=== PATIENT | male | born 1930 | race Caucasian/White ===

== ENCOUNTER → 2016-08-27 | Outpatient (CLI) | payer MEDICARE, OTHER | LOC: BFHH 12:24 | PROVIDERS: ATTEND Family Medicine | DX: I50.23 Acute on chronic systolic (congestive) heart failure (principal); I48.91 Unspecified atrial fibrillation; I13.0 Hypertensive heart and chronic kidney disease with heart failure and stage 1 through stage 4 chronic kidney disease, or unspecified chronic kidney disease; N18.9 Chronic kidney disease, unspecified; D51.9 Vitamin B12 deficiency anemia, unspecified ==

== ENCOUNTER → 2017-01-06 | Outpatient (CLI) | payer OTHER | END | disposition home or self-care (01) | LOC: BFHH 11:11 | PROVIDERS: ATTEND Family Medicine | DX: I13.0 Hypertensive heart and chronic kidney disease with heart failure and stage 1 through stage 4 chronic kidney disease, or unspecified chronic kidney disease (principal); I50.23 Acute on chronic systolic (congestive) heart failure; D51.9 Vitamin B12 deficiency anemia, unspecified; I25.10 Atherosclerotic heart disease of native coronary artery without angina pectoris; Z12.5 Encounter for screening for malignant neoplasm of prostate | CPT/HCPCS: 80053; 80061; 82550; 82607; 83880; 85025; G0103 ==

== ENCOUNTER 2017-09-21 08:38 | Emergency (ER) | payer OTHER ==
[2017-09-21 08:58] VITALS: TEMP 98.1
--- NOTE | 2017-09-21 09:28 | RAD ---
EXAM DESCRIPTION: Chest,2 Views CLINICAL HISTORY: right anterior chest pain with mvt COMPARISON: Previous study December 16, 2015 TECHNIQUE: PA/lateral FINDINGS: There is no acute appearing cardiac or pulmonary abnormality. Heart size is large with normal pulmonary vascularity. Cardiac pacer defibrillator is in place with electrode lead tips in the region of the right atrium and right ventricle. Sternotomy wires are present. No pleural effusion or pneumothorax. Lungs are clear with no consolidating infiltrate. Lateral view shows intact sternum and mild spurring in the T-spine. Aorta appears calcified. 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 Since December 15, heart appears slightly larger but no other change is evident. IMPRESSION: Large heart without congestive failure. Electronically signed by: Lars Kerr MD 09/21/2017 9:26 AM CDT
[2017-09-21] MEDS: traMADol HCL 50 MG TAB PO ONE (10:34)
[2017-09-21 10:37] VITALS: O2SAT 97
--- NOTE | 2017-09-21 11:38 | ED.PDOC ---
History of Present Illness - General Chief Complaint: Chest Pain/[place] Stated Complaint: R chest wall discomfort Time Seen by Provider: 09/21/17 09:02 Source: patient Exam Limitations: no limitations - History of Present Illness Initial Comments: The patient is an 87-year-old male presenting to the emergency room secondary to pain just to the right side of his sternum that started when he was rolling over in bed this morning at around 5 AM. He waited 3-4 hours before coming into the emergency room. He has been fairly constant since then with it worse with movement and taking a deep breath. No cough or shortness of breath. No palpitations. It is no worse when he is walking around or exerting himself other than moving his thorax. His rib cage anteriorly into the right are uncomfortable to palpation. There is no obvious bruising. No crepitus. Lungs are clear. The pain is reproducible with palpation. No nausea or vomiting. He does have a pacemaker in place on the left. Timing/Duration: 4-6 hours Severity: moderate Improving Factors: immobilization Worsening Factors: movement Associated Symptoms: denies symptoms Allergies/Adverse Reactions: Allergies Codeine Allergy (Unknown, Verified 04/11/16 00:40) Home Medications: Ambulatory Orders Acitretin 25 mg PO BEDTIME 05/21/13 Aspirin [Eq Aspirin Low Dose] 81 mg PO BEDTIME 05/21/13 Atorvastatin Calcium [Lipitor] 40 mg PO BEDTIME 08/11/13 Carvedilol [Coreg] 6.25 mg PO BID 05/24/15 Furosemide 20 mg PO DAILY 05/24/15 Levothyroxine Sodium [Synthroid] 100 mcg PO DAILY 05/24/15 Lisinopril 20 mg PO DAILY 05/24/15 Potassium Chloride [K-Tab] 20 meq PO DAILY 05/24/15 Tramadol HCl 50 mg PO BID 05/24/15 Ascorbic Acid [Vitamin C] 500 mg PO BID 10/25/15 Cyclobenzaprine HCl [Flexeril] 10 mg PO BEDTIME 10/25/15 Warfarin Sodium [Coumadin] 3 mg PO BEDTIME 04/11/16 amLODIPine BESYLATE [Norvasc] 5 mg PO DAILY 04/11/16 Review of Systems - Review of Systems Constitutional: States: no symptoms reported - he patient is pleasant and in no acute distress EENTM: States: no symptoms reported Respiratory: States: no symptoms reported Cardiology: States: chest pain Gastrointestinal/Abdominal: States: no symptoms reported Genitourinary: States: no symptoms reported Musculoskeletal: States: no symptoms reported Skin: States: no symptoms reported Neurological: States: no symptoms reported Endocrine: States: no symptoms reported Hematologic/Lymphatic: States: no symptoms reported All other Systems: No Change from Baseline Past Medical History (General) - Patient Medical History Hx Seizures: No Hx Stroke: No Hx Dementia: No Hx Asthma: No Hx of COPD: No Hx Cardiac Disorders: Yes - hypertriglyceridemia Hx Congestive Heart Failure: Yes Hx Pacemaker: Yes - defib/pacemaker Hx Hypertension: Yes Hx Thyroid Disease: Yes Hx Diabetes: No Hx Gastroesophageal Reflux: No Hx Renal Disease: No Hx Cancer: No Hx of HIV: No Hx Hepatitis C: No Hx MRSA: No MRSA Source:: nasal swab Surgical History: coronary bypass surgery, other - Vaccination History Hx Tetanus, Diphtheria Vaccination: Yes Hx Influenza Vaccination: Yes - 2017 Hx Pneumococcal Vaccination: Yes - Social History Hx Tobacco Use: No Hx Chewing Tobacco Use: No Hx Alcohol Use: Yes Hx Substance Use: No Hx Substance Use Treatment: No Hx Depression: No Hx Physical Abuse: No Hx Emotional Abuse: No Hx Suspected Abuse: No - Female History Patient : No Family Medical History - Family History Sister Family History: No Known Living Status: Still Living Hx Family;Other: Alzheimers Mother Family History: No Known Living Status: Cause of : cardiac Hx Cardiac Disease: Yes Physical Exam - Physical Exam General Appearance: Alert, Anxious, No apparent distress Eye Exam: bilateral normal Ears, Nose, Throat: normal ENT inspection, normal pharynx Neck: non-tender, supple Respiratory: lungs clear, normal breath sounds, no respiratory distress, no accessory muscle use, other - nterior chest wall to the right is tender to palpation. No crepitus. No bruising. 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 The patient can take his tramadol for this pain. He does need to take big deep breaths and twist and turn to help reduce irritation at the site. He can additionally takes some Aleve if he wishes to help reduce inflammation at the site. He should expect to have some pain in that area for the next couple of weeks. ER warnings were given for any significant worsening. He should follow up with his primary care doctor in 3 or 4 days otherwise. - Results/Orders Results/Orders: 09/21/17 09:02 Telemetry .CONTINUOUS electronically pacedrate controlled rhythm 09/21/17 09:15 EKG STAT EKG shows a ventricularly paced rhythm. Two-view chest x-ray shows mild cardiomegaly and his pacer in place. No other evidence of any acute pathology. Laboratory Results - last 24 hr 09/21/17 09/21/17 09/21/17 08:55 08:55 08:55 WBC 7.0 RBC 4.05 L Hgb 14.2 Hct 42.2 MCV 104.1 H MCH 35.0 H MCHC 33.7 RDW 14.1 Plt Count 243 MPV 7.8 Absolute Neuts (auto) 5.20 Absolute Lymphs (auto) 0.90 L Absolute Monos (auto) 0.70 Absolute Eos (auto) 0.20 Absolute Basos (auto) 0.10 Neutrophils % 73.7 Lymphocytes % 13.4 L Monocytes % 10.0 H Eosinophils % 2.2 Basophils % 0.7 PT 22.8 H* INR 1.980 PTT (SP) 36.6 H Sodium 138 Potassium 4.1 Chloride 107 Carbon Dioxide 24 Anion Gap 11.1 L BUN 9 Creatinine 0.92 BUN/Creatinine Ratio 9.8 L Random Glucose 145 H Serum Osmolality 276.9 Calcium 8.9 Total Bilirubin 0.6 AST 34 ALT 26 Alkaline Phosphatase 75 Creatine Kinase 47 CK-MB (CK-2) 1.9 CK-MB (CK-2) % Not Reportable Troponin I < 0.02 B-Natriuretic Peptide 142.0 H Serum Total Protein 6.8 Albumin 3.8 Globulin 3.0 Albumin/Globulin Ratio 1.3 Departure - Departure Clinical Impression: Musculoskeletal chest pain Disposition: Discharge to Home or Self Care Condition: Fair Departure Forms: ED Discharge - Pt. Copy, Patient Portal Self Enrollment Instructions: DI for Costochondritis Diet: diabetic diet Activity: increase activity as tolerated Referrals: Pb Jules MD [Primary Care Provider] - 1-5 Days Home Medications: Ambulatory Orders Acitretin 25 mg PO BEDTIME 05/21/13 Aspirin [Eq Aspirin Low Dose] 81 mg PO BEDTIME 05/21/13 Atorvastatin Calcium [Lipitor] 40 mg PO BEDTIME 08/11/13 Carvedilol [Coreg] 6.25 mg PO BID 05/24/15 Furosemide 20 mg PO DAILY 05/24/15 Levothyroxine Sodium [Synthroid] 100 mcg PO DAILY 05/24/15 Lisinopril 20 mg PO DAILY 05/24/15 Potassium Chloride [K-Tab] 20 meq PO DAILY 05/24/15 Tramadol HCl 50 mg PO BID 05/24/15 Ascorbic Acid [Vitamin C] 500 mg PO BID 10/25/15 Cyclobenzaprine HCl [Flexeril] 10 mg PO BEDTIME 10/25/15 Warfarin Sodium [Coumadin] 3 mg PO BEDTIME 04/11/16 amLODIPine BESYLATE [Norvasc] 5 mg PO DAILY 04/11/16 Additional Instructions: the patient's 87-year-old male presenting to the emergency room secondary to right sided anterior chest pain that is most consistent with costochondritis. The patient can take his tramadol for this pain. He does need to take big deep breaths and twist and turn to help reduce irritation at the site. He can additionally takes some Aleve if he wishes to help reduce inflammation at the site. He should expect to have some pain in that area for the next couple of weeks. ER warnings were given for any significant worsening. He should follow up with his primary care doctor in 3 or 4 days otherwise.
[2017-09-21 12:27] VITALS: BP 155/90
== END 2017-09-21 12:15 | disposition home or self-care (01) ==
LOC: ER 08:38
DX: R07.89 Other chest pain (principal); I11.0 Hypertensive heart disease with heart failure; I50.9 Heart failure, unspecified; E07.9 Disorder of thyroid, unspecified; E78.1 Pure hyperglyceridemia; Z95.1 Presence of aortocoronary bypass graft; Z95.0 Presence of cardiac pacemaker; Z79.01 Long term (current) use of anticoagulants; Z79.82 Long term (current) use of aspirin

== ENCOUNTER → 2017-10-08 | Outpatient (CLI) | payer OTHER | LOC: GMAJ 14:45 | PROVIDERS: ATTEND Family Medicine | DX: D51.9 Vitamin B12 deficiency anemia, unspecified (principal) ==

== ENCOUNTER → 2018-04-27 | Outpatient (CLI) | payer OTHER | LOC: GMAJ 12:47 | PROVIDERS: ATTEND Family Medicine | DX: E03.9 Hypothyroidism, unspecified (principal) ==

== ENCOUNTER 2018-11-27 14:10 | Inpatient (IN) | payer MEDICARE, OTHER ==
[2018-11-27] MEDS ORDERED: IPRATROPIUM/ALBUTEROL 3 ML VIAL NEB ONE (14:16)
[2018-11-27] MEDS ORDERED: IBUPROFEN 200 MG TAB PO ONE (14:43)
[2018-11-27] MEDS ORDERED: cefTRIAXone SODIUM 1 GM in SODIUM CHL 0.9% 50ML MIN-BAG+ 50 ML IVPB ONE (15:12)
[2018-11-27] MEDS ORDERED: AZITHROMYCIN IV 500 MG in SODIUM CHLORIDE 0.9% 250ML 250 ML IVPB ONE (15:12)
--- NOTE | 2018-11-27 15:12 | RAD ---
EXAM DESCRIPTION: Chest,XR 2 Views CLINICAL HISTORY: sob COMPARISON: September 21, 2017 FINDINGS: Cardiac silhouette is enlarged, unchanged compared with the prior exam. Pacer leads project over the heart. Patient is status post median sternotomy and heart valve surgery. EKG leads project over the chest. Blunted left costophrenic angle could be secondary to pleural thickening versus small amount of pleural fluid. Contour of the left hemidiaphragm in the lateral view is unchanged. There is atherosclerosis. There is no acute osseous process visualized. IMPRESSION: No evidence of acute cardiopulmonary disease. Electronically signed by: Srhee Ewing MD 11/27/2018 3:10 PM CDT
[2018-11-27] MEDS ORDERED: AZITHROMYCIN IV 500 MG VIAL IVPB ONE (15:13)
[2018-11-27] MEDS ORDERED: cefTRIAXone SODIUM 1 GM VIAL ONE (15:13)
[2018-11-27] MEDS ORDERED: SODIUM CHL 0.9% 50ML MIN-BAG+ 50 ML IVPB ONE (15:14)
[2018-11-27] MEDS ORDERED: SODIUM CHLORIDE 0.9% 250ML 250 ML ONE (15:14)
--- NOTE | 2018-11-27 15:36 | ED.PDOC ---
History of Present Illness - General Chief Complaint: Respiratory Problem Stated Complaint: shortness of breath Time Seen by Provider: 11/27/18 14:15 Source: patient Exam Limitations: clinical condition - History of Present Illness Initial Comments: the patient is an 88-year-old male presenting to the emergency room secondary to some increasing confusion today along with increasing shortness of breath. The patient was found to be febrile here to 103. He has had a mild cough. He does currently have a right lower lobe rales. No syncope or near- syncope. No chest pain. He is alert and pleasant and cooperative though he does have some dementia and a lot of his answers about previous symptoms and events cannot be trusted. He does have family and friends present who are able to fill in information. 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 Additionally he has had a history of C. difficile colitis in the past, in 2016. No chest pain. No diarrhea. No nausea or vomiting. He has not technically hypoxic but does saturate right around 90% on room air while awake and does feel better with a couple of liters of oxygen flowing. This does correct his oxygen saturation as well. He does have a history of COPD. He did have an albuterol treatment before he came up here and did receive a DuoNeb treatment once he arrived here. Timing/Duration: 4-6 hours Severity: moderate Improving Factors: nothing Worsening Factors: nothing Associated Symptoms: cough, fever/chills, malaise, shortness of breath Allergies/Adverse Reactions: Allergies Codeine Allergy (Unknown, Verified 04/11/16 00:40) Home Medications: Ambulatory Orders Acitretin 25 mg PO .05/21/13 Aspirin [Eq Aspirin Low Dose] 81 mg PO BEDTIME 05/21/13 Atorvastatin Calcium [Lipitor] 40 mg PO BEDTIME 08/11/13 Carvedilol [Coreg] 6.25 mg PO BID 05/24/15 Furosemide 20 mg PO DAILY 05/24/15 Levothyroxine Sodium [Synthroid] 100 mcg PO DAILY 05/24/15 Lisinopril 20 mg PO DAILY 05/24/15 Potassium Chloride [K-Tab] 20 meq PO DAILY 05/24/15 Tramadol HCl 50 mg PO BID 05/24/15 Ascorbic Acid [Vitamin C] 500 mg PO BID 10/25/15 Cyclobenzaprine HCl [Flexeril] 5 mg PO BID 10/25/15 Warfarin Sodium [Coumadin] 3 mg PO BEDTIME 04/11/16 amLODIPine BESYLATE [Norvasc] 10 mg PO DAILY 04/11/16 Flaxseed (Linseed) [Flaxseed Oil] 1,000 mg PO BEDTIME 11/27/18 Probiotic Product [Probiotic] 1 tab PO BEDTIME 11/27/18 Review of Systems - Review of Systems Constitutional: States: fever, malaise EENTM: States: no symptoms reported Respiratory: States: cough, short of breath Cardiology: States: no symptoms reported Gastrointestinal/Abdominal: States: no symptoms reported Genitourinary: States: no symptoms reported Musculoskeletal: States: no symptoms reported Skin: States: no symptoms reported Neurological: States: other - onfusion Endocrine: States: no symptoms reported Hematologic/Lymphatic: States: no symptoms reported All other Systems: No Change from Baseline Past Medical History (General) - Patient Medical History Hx Seizures: No Hx Stroke: No Hx Dementia: No Hx Asthma: No Hx of COPD: No Hx Cardiac Disorders: Yes - hypertriglyceridemia Hx Congestive Heart Failure: Yes Hx Pacemaker: Yes - defib/pacemaker Hx Hypertension: Yes Hx Thyroid Disease: Yes Hx Diabetes: No Hx Gastroesophageal Reflux: No Hx Renal Disease: No Hx Cancer: No Hx of HIV: No Hx Hepatitis C: No Hx MRSA: No MRSA Source:: nasal swab Surgical History: coronary bypass surgery - Vaccination History Hx Tetanus, Diphtheria Vaccination: Yes Hx Influenza Vaccination: Yes Hx Pneumococcal Vaccination: Yes - Social History Hx Tobacco Use: No Hx Chewing Tobacco Use: No Hx Alcohol Use: Yes Hx Substance Use: No Hx Substance Use Treatment: No Hx Depression: No Hx Physical Abuse: No Hx Emotional Abuse: No Hx Suspected Abuse: No - Female History Patient : No Family Medical History - Family History Sister Family History: No Known Living Status: Still Living Hx Family;Other: Alzheimers Mother Family History: No Known Living Status: Cause of : cardiac Hx Cardiac Disease: Yes Physical Exam - Physical Exam General Appearance: Alert, Ill Appearing Eye Exam: bilateral normal Ears, Nose, Throat: hearing grossly normal, normal ENT inspection Neck: full range of motion, supple Respiratory: no respiratory distress, no accessory muscle use, other - right lower lobe rales. Cardiovascular/Chest: normal peripheral pulses, other - =1 edema to bilateral lower extremities. Paced rhythm. 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 Skin Exam: normal color Comments: Vital Signs - 24 hr 11/27/18 11/27/18 11/27/18 14:20 14:26 14:36 Temperature 103.1 F H Pulse Rate 70 Pulse Rate [ 77 Right Brachial] Respiratory 20 22 20 Rate Blood Pressure 141/62 [Right Arm] O2 Sat by Pulse 94 L 97 Oximetry 11/27/18 11/27/18 15:10 15:32 Temperature 102.7 F H Pulse Rate Pulse Rate [ 79 Right Brachial] Respiratory 20 Rate Blood Pressure 139/67 [Right Arm] O2 Sat by Pulse 96 Oximetry Progress - Progress Progress: 11/27/18 15:38 the patient is an 88-year-old male presenting to the emergency room secondary to altered mental status with shortness of breath just since this morning. Based upon clinical exam and laboratory work and probably the patient has the start of a right lower lobe pneumonia as the source. Blood culture has been taken. He has received a DuoNeb treatment. He is being placed on Rocephin and azithromycin. He does have a mildly elevated lactic acid and will likely need some supplemental fluid over the coming days. He is less short of breath with supplemental oxygen in place so for now we will keep low flow going. He will be continue nebulizer treatments. The patient does have a history of C. difficile colitis and endocarditis in the past. Certainly if symptoms change then recurrences of these entities could be entertained. Admit for workup. The patient has received Motrin which has helped significantly with the fever and confusion. - Results/Orders Results/Orders: chest x-ray shows a very small effusion at the right costophrenic angle. No other acute pathology. EKG shows a ventricularly paced rhythm with a PVC. Difficult to interpret otherwise. Rate is 72 bpm. Laboratory Tests 11/27/18 11/27/18 11/27/18 14:29 14:29 14:29 WBC 16.5 H RBC 4.02 L Hgb 14.0 Hct 41.8 L MCV 104.0 H MCH 34.8 H MCHC 33.4 RDW 12.9 Plt Count 214 MPV 7.4 Absolute Neuts (auto) 15.30 H Absolute Lymphs (auto) 0.40 L Absolute Monos (auto) 0.70 Absolute Eos (auto) 0.10 Absolute Basos (auto) 0.10 Neutrophils % 92.3 H Lymphocytes % 2.3 L Monocytes % 4.5 Eosinophils % 0.5 L Basophils % 0.4 PT 24.6 H INR 2.48 H PTT (SP) 31.9 H Sodium 138 Potassium 4.0 Chloride 106 Carbon Dioxide 21 Anion Gap 15.0 BUN 15 Creatinine 1.12 BUN/Creatinine Ratio 13.4 Random Glucose 180 H Serum Osmolality 281.0 Lactic Acid Calcium 9.1 Magnesium 2.0 Total Bilirubin 0.8 AST 38 ALT 28 Alkaline Phosphatase 80 Creatine Kinase 32 L CK-MB (CK-2) 1.9 CK-MB (CK-2) % Not Reportable Troponin I < 0.02 B-Natriuretic Peptide 282.0 H* Serum Total Protein 7.7 Albumin 4.3 Globulin 3.4 Albumin/Globulin Ratio 1.3 TSH 0.26 L Urine Color Urine Appearance Urine pH Ur Specific [place] Urine Protein Urine Glucose (UA) Urine Ketones Urine Blood Urine Nitrite Urine Bilirubin Urine Urobilinogen Ur Leukocyte Esterase Urine RBC Urine WBC Ur Epithelial Cells Urine Bacteria 11/27/18 11/27/18 14:39 15:16 WBC RBC Hgb Hct MCV MCH MCHC RDW Plt Count MPV Absolute Neuts (auto) Absolute Lymphs (auto) Absolute Monos (auto) Absolute Eos (auto) Absolute Basos (auto) Neutrophils % Lymphocytes % Monocytes % Eosinophils % Basophils % PT INR PTT (SP) Sodium Potassium Chloride Carbon Dioxide Anion Gap BUN Creatinine BUN/Creatinine Ratio Random Glucose Serum Osmolality Lactic Acid 2.7 H* Calcium Magnesium Total Bilirubin AST ALT Alkaline Phosphatase Creatine Kinase CK-MB (CK-2) CK-MB (CK-2) % Troponin I B-Natriuretic Peptide Serum Total Protein Albumin Globulin Albumin/Globulin Ratio TSH Urine Color Yellow Urine Appearance Clear Urine pH 5.0 Ur Specific [place] 1.025 Urine Protein Trace Urine Glucose (UA) Negative Urine Ketones Trace Urine Blood Negative Urine Nitrite Negative Urine Bilirubin Negative Urine Urobilinogen 0.2 Ur Leukocyte Esterase Negative Urine RBC 0 Urine WBC 0-1 Ur Epithelial Cells 1-3 Urine Bacteria 0 Departure - Departure Clinical Impression: Delirium Pneumonia Qualifiers: Pneumonia type: due to unspecified organism Laterality: right Lung location: lower lobe of lung Qualified Code(s): J18.1 - Lobar pneumonia, unspecified organism Disposition: Admit Patient Departure Forms: ED Discharge - Pt. Copy, Patient Portal Self Enrollment Referrals: Pb Jules MD [Primary Care Provider] - 1-2 Weeks Home Medications: Ambulatory Orders Acitretin 25 mg PO .05/21/13 Aspirin [Eq Aspirin Low Dose] 81 mg PO BEDTIME 05/21/13 Atorvastatin Calcium [Lipitor] 40 mg PO BEDTIME 08/11/13 Carvedilol [Coreg] 6.25 mg PO BID 05/24/15 Furosemide 20 mg PO DAILY 05/24/15 Levothyroxine Sodium [Synthroid] 100 mcg PO DAILY 05/24/15 Lisinopril 20 mg PO DAILY 05/24/15 Potassium Chloride [K-Tab] 20 meq PO DAILY 05/24/15 Tramadol HCl 50 mg PO BID 05/24/15 Ascorbic Acid [Vitamin C] 500 mg PO BID 10/25/15 Cyclobenzaprine HCl [Flexeril] 5 mg PO BID 10/25/15 Warfarin Sodium [Coumadin] 3 mg PO BEDTIME 04/11/16 amLODIPine BESYLATE [Norvasc] 10 mg PO DAILY 04/11/16 Flaxseed (Linseed) [Flaxseed Oil] 1,000 mg PO BEDTIME 11/27/18 Probiotic Product [Probiotic] 1 tab PO BEDTIME 11/27/18 Decision To Admit - Decistion To Admit Decision to Admit Reason: Medical Nature Decision to Admit Date: 11/27/18 Decision to Admit Time: 15:40
[2018-11-27] MEDS ORDERED: SODIUM CHLORIDE 0.9% 1000ML 1,000 ML IVS ONE (15:40)
--- NOTE | 2018-11-27 16:14 | HP ---
SUPERVISING PHYSICIAN: Pedrito Bernabe M.D. CHIEF COMPLAINT: Shortness of breath. HISTORY OF PRESENT ILLNESS: This is an 88 year-old male came to the Emergency Room after he had some increasing confusion as well as shortness of breath. He also had a temperature of 103. He also complained of coughing. The patient does have some mild dementia. It is difficult to obtain a good H&P through the patient, but his sons have been helpful with his symptoms and past medical history. 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 He also has a history of C-Difficile colitis in the past. When he presented to the Emergency Room his vital signs showed an O2 sat of 90% on room air. He was slightly tachypneic at 22, blood pressure 141/62, heart rate 77, temperature 103.1. Lab was completed and he had a WBC of 16,500 with hemoglobin 14, hematocrit 41.8. He did have a left shift on his differential. INR was 2.48. He is on Coumadin. His electrolytes are basically within normal limits but he did have a lactic acid of 2.7. BNP was slightly elevated at 282. C reactive protein was 0.8. EST was 10. An x-ray was done and he was felt to have early stages of right lower lobe pneumonia. He was given some Rocephin and azithromycin as well as some IV fluids. Blood cultures were also drawn prior to his receiving antibiotics. He also had a urinalysis that was unremarkable. I was called for hospital admission. PAST MEDICAL HISTORY: 1. Chronic obstructive pulmonary disease. 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 3. Coronary artery disease. 4. Osteoporosis. 5. Psoriasis. 6. Hyperlipidemia. 7. Atrial fibrillation. 8. Aortic valve replacement on Coumadin therapy. 9. Hypertension. 10. Chronic low back pain. PAST SURGICAL HISTORY: 1. Coronary artery bypass graft in 2009 with 2 vessel graft as well as stent placement. 2. Pacemaker defibrillator placement. 3. Aortic valve replacement in 2009 with a porcine valve. CURRENT MEDICATIONS: Per the EMR and awaiting verification. ALLERGIES: CODEINE. FAMILY HISTORY: Positive for coronary artery disease and tuberculosis. SOCIAL HISTORY: He is a [employer] . He also worked at [employer] until his long-term. He denies any tobacco, ETOH or illicit drug use. REVIEW OF SYSTEMS: GENERAL: Positive for fatigue and fever. Negative for weight changes. HEENT: Negative for sinus symptoms, ear pain, vision changes or sore throat. RESPIRATORY: Positive for coughing and shortness of breath. Negative for wheezing. CARDIAC: Negative for palpitations, tachycardia or chest pain. GASTROINTESTINAL: Negative for nausea, vomiting, diarrhea or constipation. GENITOURINARY: Negative for hematuria, dysuria or polyuria. MUSCULOSKELETAL: Negative for arthralgias or myalgias. SKIN: Negative for lesions or rashes. NEUROLOGIC: Positive for some mild confusion and some weakness. Negative for headaches or seizures. HEMATOLOGIC: Negative for any significant bruising or blood transfusion reactions. PHYSICAL EXAMINATION: VITAL SIGNS: Temperature 98.6, heart rate 70, blood pressure 130/72, respiratory rate 22, O2 sat 96%. GENERAL: This is an 88 year-old male patient who is sitting on the side of his hospital bed. He is in mild respiratory distress. HEENT: Normocephalic and atraumatic. Pupils are equal and reactive. Oropharynx is clear. NECK: Supple without mass. RESPIRATORY: A few scattered crackles throughout as well as some rhonchi. Slightly diminished at the bases. He is slightly tachypneic at times. CARDIOVASCULAR: Regular rate, irregular rhythm. GASTROINTESTINAL: Abdomen is soft, nondistended, non-tender.. Bowel sounds are positive. EXTREMITIES: No cyanosis or clubbing. He has a trace of pedal edema. Bilateral pedal pulses are palpable at +2. SKIN: Warm and dry. NEUROLOGIC: He is awake and alert. He has poor short term memory. He is oriented to person and place. LABORATORY: Labs and films are as per the History of Present Illness. ASSESSMENT: 1. Severe sepsis secondary to right lower lobe pneumonia most likely community acquired with an admitting lactic acid of 2.7, temperature 103, WBCs of 16,500 and respiratory rate of 22. 2. 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 He has recently had a dental procedure. He did not receive antibiotics, but his CRP and ESR are both within normal limits. 3. History of C-Difficile colitis presently with no GI symptoms. 4. History of chronic obstructive pulmonary disease without exacerbation. 5. Coronary artery disease. 6. History of aortic valve replacement. 7. History of atrial fibrillation. He is on Coumadin therapy. 8. Hypertension. 9. Sleep apnea requiring a CPAP machine. PLAN: Will admit the patient to the hospital. I will begin the pneumonia protocol with aggressive pulmonary hygiene. Will continue with his azithromycin and Rocephin as ordered in the Emergency Room. He will continue on his Coumadin. I have checked his INR for in the morning, but will continue on his present dose of Coumadin. I will restart his home medications as soon as they have been verified. He does have an appointment with Dr. Dixon in the next week or so. On Thursday it may be beneficial for nursing staff to alert Dr. Dixon that the patient is in the hospital and he may want to see him while he is in the hospital for a pacemaker check. I have ordered lab for in the morning. Will hold on a chest x-ray for now. Will continue to monitor closely and follow as needed. #[id number] [facility]
[2018-11-27] MEDS ORDERED: SODIUM CHLORIDE 0.45% 1000ML 1,000 ML IVS ONE (17:43)
[2018-11-27] MEDS ORDERED: ACETAMINOPHEN 325 MG TAB PO PRN (17:44)
[2018-11-27] MEDS ORDERED: ALBUTEROL SULFATE 2.5 MG/3 ML VIAL NEB PRN (17:44)
[2018-11-27] MEDS ORDERED: WARFARIN SODIUM 2 MG TAB PO ONE (17:50)
[2018-11-27] MEDS: IV SET AND CAP CHANGE INJ INJ SCH (18:36)
[2018-11-27] MEDS ORDERED: ATORVASTATIN 20 MG TAB PO ONE (19:15)
[2018-11-27] MEDS ORDERED: CARVEDILOL 3.125 MG TAB ONE (19:15)
[2018-11-27] MEDS ORDERED: CYCLOBENZAPRINE HCL 5 MG TAB ONE (19:15)
[2018-11-27] MEDS: IPRATROPIUM/ALBUTEROL 3 ML VIAL INH SCH (20:11)
[2018-11-27] MEDS: ASPIRIN (CHEWABLE) 81 MG TAB PO SCH (20:42)
[2018-11-27] MEDS: traMADol HCL 50 MG TAB PO SCH (20:44)
[2018-11-27] MEDS: SODIUM CHLORIDE 0.9% (FLUSH) 10 ML SYG IV SCH (20:46)
[2018-11-27] MEDS ORDERED: NON-FORMULARY MEDICATION 1 EA MIS (Atorvastatin Calcium [Lipitor] 40 MG) PO SCH (21:00)
[2018-11-27] MEDS ORDERED: CYCLOBENZAPRINE HCL 10 MG TAB PO SCH (21:00)
[2018-11-27] MEDS ORDERED: NON-FORMULARY MEDICATION 1 EA MIS (Carvedilol [Coreg] 6.25 MG) PO SCH (21:00)
[2018-11-28] MEDS: PANTOPRAZOLE SODIUM IV 40 MG VIAL IV SCH (06:24)
[2018-11-28] MEDS: LEVOTHYROXINE SODIUM 0.1 MG TAB PO SCH (06:24)
--- NOTE | 2018-11-28 06:45 | RAD ---
EXAM DESCRIPTION: Chest,2 Views CLINICAL HISTORY: 88 years Male Pneumonia COMPARISON: Two-view chest dated 11/27/2018 TECHNIQUE: PA and lateral views of the chest are obtained. Heart: The heart is moderately enlarged status post aortic valvular replacement and mitral valvular repair . A biventricular pacemaker/defibrillator apparatus is in place with leads terminating in the right atrium, right ventricle and left coronary sinus. Vasculature: []There is no evidence of aortic aneurysm or acute findings. The pulmonary vascularity is normal. Mediastinum: Unremarkable otherwise. No evidence of mass or adenopathy. Lungs: Minimal focal groundglass opacification persists in the right lower lung. The remainder the lungs are clear. There is no focal consolidation in the lungs. Pleural spaces: There are no pleural effusions. There are no pneumothoraces. Osseous structures: There is no evidence of acute fracture, osseous destruction or osteoblastic lesions. The bones appear demineralized with mild degenerative changes in the thoracic and upper lumbar spine. Tubes and catheters: None Upper abdomen: No acute findings. Chest wall: Unremarkable. IMPRESSION: Moderate cardiomegaly status post aortic valve replacement and mitral valvular repair. Minimal focal groundglass opacification in the right lower lung probably reflects mild edema or atelectasis/pneumonia, similar to the previous day. Electronically signed by: Lizzy Schultz MD 11/28/2018 6:41 AM CDT
[2018-11-28] MEDS: IPRATROPIUM/ALBUTEROL 3 ML VIAL INH SCH (08:21)
[2018-11-28] MEDS ORDERED: SODIUM CHL 0.9% 50ML MIN-BAG+ 50 ML IVPB ONE (08:24)
[2018-11-28] MEDS ORDERED: CYCLOBENZAPRINE HCL 5 MG TAB ONE (08:24)
[2018-11-28] MEDS ORDERED: LISINOPRIL 10 MG TAB ONE (08:24)
[2018-11-28] MEDS ORDERED: CARVEDILOL 12.5 MG TAB ONE (08:24)
[2018-11-28] MEDS ORDERED: amLODIPine BESYLATE 5 MG TAB ONE (08:25)
[2018-11-28] MEDS ORDERED: cefTRIAXone SODIUM 1 GM VIAL ONE (08:25)
[2018-11-28] MEDS ORDERED: POTASSIUM CHLORIDE 20 MEQ TAB ONE (08:25)
[2018-11-28] MEDS: amLODIPine BESYLATE 5 MG TAB PO SCH (09:01)
[2018-11-28] MEDS: FUROSEMIDE 40 MG TAB PO SCH (09:02)
[2018-11-28] MEDS: traMADol HCL 50 MG TAB PO SCH ×2 (09:02→20:43)
[2018-11-28] MEDS: CYCLOBENZAPRINE HCL 5 MG TAB PO SCH ×2 (09:02→20:43)
[2018-11-28] MEDS: LISINOPRIL 10 MG TAB PO SCH (09:02)
[2018-11-28] MEDS: POTASSIUM CHLORIDE 20 MEQ TAB PO SCH (09:02)
[2018-11-28] MEDS: CARVEDILOL 3.125 MG TAB PO SCH ×2 (09:04→20:43)
[2018-11-28] MEDS: SODIUM CHLORIDE 0.9% (FLUSH) 10 ML SYG IV SCH ×2 (09:04→20:43)
[2018-11-28] MEDS: cefTRIAXone SODIUM 1 GM in SODIUM CHL 0.9% 50ML MIN-BAG+ 50 ML IVPB SCH (09:06)
[2018-11-28] MEDS ORDERED: AZITHROMYCIN IV 500 MG VIAL IVPB ONE (12:22)
[2018-11-28] MEDS ORDERED: SODIUM CHLORIDE 0.9% 250ML 250 ML ONE (12:22)
[2018-11-28] MEDS: WARFARIN SODIUM 3 MG TAB PO SCH (12:27)
[2018-11-28] MEDS: AZITHROMYCIN IV 500 MG in SODIUM CHLORIDE 0.9% 250ML 250 ML IVPB SCH (12:28)
[2018-11-28] MEDS: IPRATROPIUM/ALBUTEROL 3 ML VIAL NEB SCH ×3 (12:58→20:34)
[2018-11-28] MEDS: ASPIRIN (CHEWABLE) 81 MG TAB PO SCH (20:43)
[2018-11-28] MEDS: ATORVASTATIN 20 MG TAB PO SCH (20:43)
[2018-11-28] MEDS: ACITRETIN 25 MG PO SCH (20:44)
--- NOTE | 2018-11-28 22:33 | PN ---
DATE: 11/28/18 SUBJECTIVE: The patient is sitting on the side of the bed. He is slightly confused. He is not quite sure why he is in the hospital and he has forgotten what happened on the previous day when he was admitted to the hospital. His sons are at the bedside. We discussed his lab results and the plan of care. The patient denies any chest pain, shortness of breath, nausea or vomiting, diarrhea. OBJECTIVE: VITAL SIGNS: Temperature is 98.6, heart rate 78, blood pressure 123/79, respiratory rate 18, O2 sat 97% on 2 liters nasal cannula. RESPIRATORY: The patient has a few scattered rhonchi throughout with breath sounds being slightly diminished at the bases. CARDIAC: Regular rate and rhythm. GASTROINTESTINAL: Abdomen is soft, nondistended, non-tender. Bowel sounds are positive. NEUROLOGIC: He is awake and alert, oriented to person and place only. LABORATORY: WBCs are slightly increased to 18,100 with hemoglobin 12.4, hematocrit 37.2. He has a left shift on differential. INR is 2.43. Electrolytes are basically within normal limits with the exception of his calcium is slightly low at 8.3. Bilirubin is up to 1.1. Preliminary blood cultures show no growth after 24 hours. Chest x-ray shows minimal focal ground glass opacification persists in the right lower lung. The remainder of the lungs are clear. All other labs and films have been reviewed via the EMR. ASSESSMENT: 1. Severe sepsis secondary to right lower lobe pneumonia most likely community acquired with an admitting lactic acid of 2.7, temperature 103, WBCs of 16,500 and respiratory rate of 22. 2. 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 He has recently had a dental procedure. He did not receive antibiotics, but his CRP and ESR are both within normal limits. 3. History of C-Difficile colitis presently with no GI symptoms. 4. History of chronic obstructive pulmonary disease without exacerbation. 5. Coronary artery disease. 6. History of aortic valve replacement. 7. History of atrial fibrillation. He is on Coumadin therapy. 8. Hypertension. 9. Sleep apnea requiring a CPAP machine. PLAN: We will continue present supportive care. Continue with his Rocephin and azithromycin as previously ordered. Will monitor his cultures as they become available. I did repeat his lab in the morning as well as his INR. He will continue on his present routine dosage of Coumadin. It may be beneficial to contact Dr. Dixon' office in the morning to see if he would like to see the patient on Thursday. The patient is planned for a pacemaker check in the next week or so and he may want to have the pacemaker checked while he is in the hospital. I will hold off on the x-ray for right now. His CRP and ESR were negative, so I am not concerned about any signs of endocarditis at this time, but we will closely monitor the patient and treat as needed. #[id number] [facility]
[2018-11-29] MEDS: LEVOTHYROXINE SODIUM 0.1 MG TAB PO SCH (06:10)
[2018-11-29] MEDS: PANTOPRAZOLE SODIUM IV 40 MG VIAL IV SCH (06:10)
[2018-11-29] MEDS ORDERED: SODIUM CHL 0.9% 50ML MIN-BAG+ 50 ML IVPB ONE (08:21)
[2018-11-29] MEDS ORDERED: cefTRIAXone SODIUM 1 GM VIAL ONE ×2 (08:22→19:21)
[2018-11-29] MEDS: IPRATROPIUM/ALBUTEROL 3 ML VIAL NEB SCH ×4 (08:49→20:18)
[2018-11-29] MEDS: POTASSIUM CHLORIDE 20 MEQ TAB PO SCH (09:39)
[2018-11-29] MEDS: FUROSEMIDE 40 MG TAB PO SCH (09:39)
[2018-11-29] MEDS: traMADol HCL 50 MG TAB PO SCH ×2 (09:39→20:08)
[2018-11-29] MEDS: LISINOPRIL 10 MG TAB PO SCH (09:40)
[2018-11-29] MEDS: amLODIPine BESYLATE 5 MG TAB PO SCH (09:40)
[2018-11-29] MEDS: CARVEDILOL 3.125 MG TAB PO SCH ×2 (09:40→20:08)
[2018-11-29] MEDS: CYCLOBENZAPRINE HCL 5 MG TAB PO SCH ×2 (09:40→20:08)
[2018-11-29] MEDS: SODIUM CHLORIDE 0.9% (FLUSH) 10 ML SYG IV SCH ×2 (09:41→20:09)
[2018-11-29] MEDS: cefTRIAXone SODIUM 1 GM in SODIUM CHL 0.9% 50ML MIN-BAG+ 50 ML IVPB SCH (09:41)
[2018-11-29] MEDS ORDERED: CEFEPIME 2 GM VIAL ONE (10:29)
[2018-11-29] MEDS ORDERED: VANCOMYCIN PER PHARMACY INJ SCH (10:30)
[2018-11-29] MEDS: CEFEPIME 2 GM in SODIUM CHL 0.9% 50ML MIN-BAG+ 50 ML IVPB SCH ×2 (11:16→11:20)
[2018-11-29] MEDS ORDERED: VANCOMYCIN HCL INJ 1,000 MG, VANCOMYCIN HCL INJ 500 MG in SODIUM CHLORIDE 0.9% 250ML 25... IVPB SCH (12:00)
[2018-11-29] MEDS ORDERED: AZITHROMYCIN IV 500 MG VIAL IVPB ONE (12:53)
[2018-11-29] MEDS ORDERED: SODIUM CHLORIDE 0.9% 250ML 250 ML ONE ×2 (12:53→12:54)
[2018-11-29] MEDS ORDERED: VANCOMYCIN HCL INJ 500 MG VIAL ONE (12:54)
[2018-11-29] MEDS ORDERED: VANCOMYCIN HCL INJ 1,000 MG VIAL IVPB ONE (12:54)
[2018-11-29] MEDS: AZITHROMYCIN IV 500 MG in SODIUM CHLORIDE 0.9% 250ML 250 ML IVPB SCH (12:58)
[2018-11-29] MEDS: WARFARIN SODIUM 3 MG TAB PO SCH (12:58)
[2018-11-29] MEDS: FUROSEMIDE INJ 20 MG/2 ML VIAL IV SCH (17:39)
[2018-11-29] MEDS: diphenhydrAMINE HCL 25 MG CAP PO PRN (18:46)
[2018-11-29] MEDS ORDERED: SODIUM CHLORIDE 0.9% 100ML 100 ML IVPB ONE (19:22)
[2018-11-29] MEDS ORDERED: methylPREDNISolone SODIUM SUC 40 MG/ML VIAL IV ONE (19:30)
[2018-11-29] MEDS: ASPIRIN (CHEWABLE) 81 MG TAB PO SCH (20:08)
[2018-11-29] MEDS: ATORVASTATIN 20 MG TAB PO SCH (20:08)
[2018-11-29] MEDS: ACITRETIN 25 MG PO SCH (20:09)
[2018-11-29] MEDS: cefTRIAXone SODIUM 2 GM in SODIUM CHL 0.9% 100ML MINI-BAG 100 ML IVPB SCH (20:18)
[2018-11-29] MEDS ORDERED: FUROSEMIDE INJ 40 MG/4 ML VIAL ONE (20:25)
[2018-11-29] MEDS ORDERED: FUROSEMIDE INJ 40 MG/4 ML VIAL IV ONE (20:35)
--- NOTE | 2018-11-29 21:17 | PN ---
DATE: 11/29/18 SUPERVISING PHYSICIAN: Tadeo Veras M.D. SUBJECTIVE: The patient feels okay today. Shortness of breath is fairly decent. He has no significant fever over the last 24 hours. OBJECTIVE: Blood pressure 123/79, heart rate 78, respiratory rate 18, temperature 98.6, oxygen saturation 97%. GENERAL: Mr. Remy is an 88 year-old male patient who is in no active distress, but chronically ill in appearance. NEUROLOGIC: The patient is alert and oriented. LUNGS: With bibasilar rales, otherwise clear to auscultation bilaterally. CARDIOVASCULAR: Regular rate and rhythm. Normal S1 and S2. ABDOMEN: Soft, obese. Positive bowel sounds. He does have some central edema. EXTREMITIES: Lower extremities with edema, 2+ pulses. Capillary refill less than 2 seconds. LABORATORY: White blood cell count 11.5, hemoglobin 12.2, hematocrit 37.2, platelet count 148. Chemistry shows sodium 135, potassium 3.6, chloride 105, CO2 is 21, BUN 24, creatinine 1.19, glucose 161, calcium 8.1. Blood cultures did grow Streptococcus morganii on all of the bottles as well. ASSESSMENT: 1. Severe sepsis secondary to right lower lobe pneumonia, improving. 2. Bacteremia with Streptococcus morganii with a history of endocarditis with the same bacteria 4 years ago. 3. History of C-Difficile colitis with no current symptoms. 4. History of chronic obstructive pulmonary disease without exacerbation. 5. History of aortic valve replacement on chronic Warfarin therapy. 6. Hypertension. 7. Obstructive sleep apnea. PLAN: At this time the blood cultures came back positive for Streptococcus morganii. Given that this was the same bacteria that he had when he had endocarditis 4 years ago, I did contact Dr. Dixon regarding this. He suggested that I contact the [facility] in [place] as this is where he had his valve replacement and the ICD replaced 4 years ago as well. I did attempt to contact the surgeon, Dr. Blaine Burrell. I have left messages for him to call me back, however I have not received a return phone call. I did speak with the family regarding this and stated that even if he was found to have endocarditis there is no way he would survive another valve surgery, and they were in agreement. He has actually been made a DNR and they have agreed to no aggressive measures, but we do have a bacteremia to treat. I did contact Dr. Yeh out of [place] who instructed me to utilize Rocephin 2 grams every 12 hours. I changed him this morning to vancomycin and Cefepime due to the fact I found gram positive cocci on his blood cultures, but now that we have a definitive organism I will go with Dr. Yeh's recommendation with Rocephin. Recheck labs in the morning as well. [facility][id number] [facility]
[2018-11-30] MEDS: diphenhydrAMINE HCL 25 MG CAP PO PRN (05:22)
[2018-11-30] MEDS: PANTOPRAZOLE SODIUM IV 40 MG VIAL IV SCH (06:07)
[2018-11-30] MEDS: LEVOTHYROXINE SODIUM 0.1 MG TAB PO SCH (06:07)
--- NOTE | 2018-11-30 07:19 | RAD ---
PROVIDED CLINICAL HISTORY/REASON FOR EXAM: pneumonia Findings: Number of images: One frontal chest radiograph Location: Chest Left chest wall pacemaker with stable lead position. Increased cardiomegaly. Increased pulmonary vascular congestion. No pneumothorax. No definite pleural effusion. Perihilar interstitial opacities. No acute osseous abnormality. Soft tissues are unremarkable. IMPRESSION: Increased cardiomegaly and pulmonary vascular congestion. Electronically signed by: Nathan Ram MD 11/30/2018 7:17 AM CDT
[2018-11-30] MEDS ORDERED: SODIUM CHL 0.9% 100ML MINI-BAG 100 ML IVPB ONE ×2 (09:13→19:13)
[2018-11-30] MEDS: IPRATROPIUM/ALBUTEROL 3 ML VIAL NEB SCH ×4 (09:15→20:26)
[2018-11-30] MEDS: CYCLOBENZAPRINE HCL 5 MG TAB PO SCH ×2 (09:46→19:57)
[2018-11-30] MEDS: LISINOPRIL 10 MG TAB PO SCH (09:46)
[2018-11-30] MEDS: CARVEDILOL 3.125 MG TAB PO SCH ×2 (09:46→19:56)
[2018-11-30] MEDS: FUROSEMIDE INJ 20 MG/2 ML VIAL IV SCH ×2 (09:46→16:54)
[2018-11-30] MEDS: amLODIPine BESYLATE 5 MG TAB PO SCH (09:46)
[2018-11-30] MEDS: cefTRIAXone SODIUM 2 GM in SODIUM CHL 0.9% 100ML MINI-BAG 100 ML IVPB SCH ×2 (09:47→19:58)
[2018-11-30] MEDS: traMADol HCL 50 MG TAB PO SCH ×2 (09:47→19:56)
[2018-11-30] MEDS: SODIUM CHLORIDE 0.9% (FLUSH) 10 ML SYG IV SCH ×2 (09:50→19:57)
[2018-11-30] MEDS: POTASSIUM CHLORIDE 20 MEQ TAB PO SCH (09:50)
[2018-11-30] MEDS: methylPREDNISolone SODIUM SUC 125 MG/2 ML VIAL IV SCH ×3 (09:50→16:54)
[2018-11-30] MEDS: WARFARIN SODIUM 3 MG TAB PO SCH (11:48)
--- NOTE | 2018-11-30 11:50 | PN ---
SUPERVISING PHYSICIAN: Tadeo Veras MD DATE: 11/30/18 SUBJECTIVE: The patient feels better today than he did yesterday. He is breathing better. Last night, he actually got a little bit short of breath and I changed his Lasix to IV from p.o. Additionally, he seemed to have an allergic reaction. This occurred on his back and the back of his legs. He was quite erythematous and had some blisters pop up as well. It is difficult to know whether or not this was due to contact dermatitis versus a drug reaction. I did change his medications to cefepime and vancomycin yesterday. He had been on Rocephin within the previous 3 days. The likelihood of him being allergic to cefepime would be low given the fact that he was on Rocephin. Nonetheless, he got some Solu-Medrol and Benadryl last night with some improvement in his symptoms. OBJECTIVE: VITAL SIGNS: Blood pressure 121/70. Heart rate 69. Respiratory rate 20. Temperature 97.6. Oxygen saturation 98%. GENERAL: Mr. Remy is an 88-year-old male patient who is still acutely ill in appearance. NEUROLOGIC: The patient is alert and oriented. LUNGS: Bibasilar rales, but otherwise clear to auscultation bilaterally. CARDIOVASCULAR: Regular rate and rhythm. Normal S1 and S2. ABDOMEN: Soft, obese. Positive bowel sounds. No tenderness to palpation. EXTREMITIES: Lower extremities with some edema. 2+ pulses. Capillary refill less than 2 seconds. BACK: He does have erythema on his back and some open blisters that have now been covered with dressing. This appears to be improved from last night. LABORATORY: Chest x-ray shows increased cardiomegaly and pulmonary vascular congestion. I have ordered Lasix on him as well. White count 8.0, hemoglobin 12.0, hematocrit 35.8, platelet count 146. INR 1.61. Chemistry with sodium 135, potassium 3.9, chloride 107, CO2 19, BUN 27, creatinine 1.43, glucose 137, calcium 7.9. ASSESSMENT: 1. Severe sepsis secondary to right lower lobe pneumonia, improving. 2. Bacteremia with Streptococcus morganii with a history of endocarditis with the same bacteria 4 years ago. 3. History of C-Difficile colitis with no current symptoms. 4. History of chronic obstructive pulmonary disease. 5. History of aortic valve replacement on chronic warfarin therapy. 6. Hypertension. 7. Obstructive sleep apnea. PLAN: I have gone back to Rocephin 2 grams q.12h. at recommendation from Dr. Yeh. I do not feel like he will have any adverse reactions with this. Potentially, vancomycin was the culprit, so this has been added to his allergy list. However, it is odd that his presentation was only posteriorly. I did have them give him new sheets that were not washed in detergent. His labs seems to be improving, as well. Clinically, he is improved this morning. I spoke with his son at bedside. I spoke with Dr. Jules this morning. We are going to go ahead and get a transthoracic echocardiogram to see if there are any abnormalities on that. I did not get a call back from Dr. Blaine Burrell from [place] yesterday. I will attempt to call the office once again and see if he can call me back for any further recommendations, however, as stated before, this patient is not going to be a candidate for any invasive procedures. He has been made a DNR, but we will continue active care at this time. #[id number] [facility]
[2018-11-30] MEDS: SILVER SULFADIAZINE 1 % 25 GM TUBE TOP SCH ×2 (13:50→19:58)
[2018-11-30] MEDS: IV SET AND CAP CHANGE INJ INJ SCH (16:54)
[2018-11-30] MEDS: ATORVASTATIN 20 MG TAB PO SCH (19:56)
[2018-11-30] MEDS: ACITRETIN 25 MG PO SCH (19:57)
[2018-11-30] MEDS: ASPIRIN (CHEWABLE) 81 MG TAB PO SCH (19:57)
[2018-12-01] MEDS: methylPREDNISolone SODIUM SUC 125 MG/2 ML VIAL IV SCH ×4 (00:28→17:48)
[2018-12-01] MEDS: SODIUM CHLORIDE 0.9% (FLUSH) 10 ML SYG IV PRN (06:11)
[2018-12-01] MEDS: PANTOPRAZOLE SODIUM IV 40 MG VIAL IV SCH (06:11)
[2018-12-01] MEDS: LEVOTHYROXINE SODIUM 0.1 MG TAB PO SCH (06:11)
[2018-12-01] MEDS: IPRATROPIUM/ALBUTEROL 3 ML VIAL NEB SCH ×4 (07:49→20:14)
[2018-12-01] MEDS: POTASSIUM CHLORIDE 20 MEQ TAB PO SCH (07:58)
[2018-12-01] MEDS ORDERED: SODIUM CHL 0.9% 100ML MINI-BAG 100 ML IVPB ONE ×2 (09:01→19:18)
[2018-12-01] MEDS: traMADol HCL 50 MG TAB PO SCH ×2 (10:09→20:06)
[2018-12-01] MEDS: CYCLOBENZAPRINE HCL 5 MG TAB PO SCH ×2 (10:09→20:06)
[2018-12-01] MEDS: amLODIPine BESYLATE 5 MG TAB PO SCH (10:09)
[2018-12-01] MEDS: LISINOPRIL 10 MG TAB PO SCH (10:10)
[2018-12-01] MEDS: cefTRIAXone SODIUM 2 GM in SODIUM CHL 0.9% 100ML MINI-BAG 100 ML IVPB SCH ×2 (10:10→20:06)
[2018-12-01] MEDS: CARVEDILOL 3.125 MG TAB PO SCH ×2 (10:10→20:06)
[2018-12-01] MEDS: SODIUM CHLORIDE 0.9% (FLUSH) 10 ML SYG IV SCH ×2 (10:10→20:06)
--- NOTE | 2018-12-01 10:10 | RAD ---
EXAM DESCRIPTION: Chest,1 View: CR/DR/XR. CLINICAL HISTORY: 88 years Male PICC line placement COMPARISON: Portable chest x-ray 11/30/2018. TECHNIQUE: ONE VIEW PORTABLE. First image AP 913 hours, second image 927 hours upright position. FINDINGS: PICC line was introduced in the right upper extremity. On the initial image, the tip curls into the right internal jugular vein. On the second image, the tip is entering the junction of the right subclavian vein and the superior vena cava. Cardiomegaly. Pulmonary vascularity not increased. Decreased lung volumes. Pacemaker and pacing leads stable. No abnormality of the upper right lung pleura. No mediastinum no widening. IMPRESSION: Insertion of PICC line via right upper extremity in customary position. No radiographic evidence of complications. Electronically signed by: Shiv Rosales MD 12/01/2018 10:08 AM CDT
[2018-12-01] MEDS: SILVER SULFADIAZINE 1 % 25 GM TUBE TOP SCH ×2 (10:11→20:06)
[2018-12-01] MEDS: WARFARIN SODIUM 3 MG TAB PO SCH (11:46)
[2018-12-01] MEDS: POLYETHYLENE GLYCOL 3350 17 GM PCKT PO SCH (13:40)
[2018-12-01] MEDS: MAGNESIUM HYDROXIDE 30 ML UD PO SCH ×3 (13:40→20:05)
--- NOTE | 2018-12-01 13:53 | PN ---
DATE: 12/01/18 SUPERVISING PHYSICIAN: Tadeo Veras MD SUBJECTIVE: The patient is sitting up in bed. His sons are at the bedside. We discussed his plan of care as well as his long-term antibiotic therapy. He got his PICC line today. He has no complaints of shortness of breath, nausea, vomiting, diarrhea or chest pain. His son has requested that when he is discharged home, he will need [facility] and also said that he has not had a bowel movement in several days and he routinely takes Miralax at home. OBJECTIVE: VITAL SIGNS: Temperature is 98.2 heart rate 71, blood pressure 126/86, respiratory rate 20, oxygen saturation 97%. RESPIRATORY: He is slightly diminished at the bases but otherwise clear to auscultation. CARDIAC: Regular rate and rhythm. GASTROINTESTINAL: Abdomen is soft, nondistended, non-tender. Bowel sounds are positive. SKIN: He continues to have that area of erythema over his back. There are no open blisters at this time. It has improved since yesterday. NEUROLOGIC: He is awake and alert, oriented to person and place. He does get slightly confused at time. LABORATORY: WBCs are 12,100 with hemoglobin 12, hematocrit 35.6. Sodium 134, BUN 41, creatinine 1.94. Calcium is 8. Blood cultures - still awaiting final results. Presently shows strep B. Chest x-ray shows the PICC line via right lower extremity, customary position. ASSESSMENT: 1. Severe sepsis secondary to right lower lobe pneumonia most likely community acquired with an admitting lactic acid of 2.7, temperature 103, WBCs of 16,500 and respiratory rate of 22. 2. 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 He has recently had a dental procedure. He did not receive antibiotics, but his CRP and ESR are both within normal limits. 3. History of C-Difficile colitis presently with no GI symptoms. 4. History of chronic obstructive pulmonary disease without exacerbation. 5. Coronary artery disease. 6. History of aortic valve replacement. 7. History of atrial fibrillation. He is on Coumadin therapy. PLAN: We will continue present supportive care. He will continue with the Rocephin 2 grams every 12 hours. Vancomycin has been added to his allergy list. Still awaiting the echocardiogram results. Once those results are returned, this will help us decide his plan of care. After we get those results, I will attempt to call Dr. Blaine Burrell in [place] to give him the echo results to get his recommendations for his care, although at this time the patient will most likely not be a candidate for invasive procedures. I have ordered him Miralax daily as well as 2 doses of milk of magnesia today. I have consulted [facility] for his discharge planning and for him to have [facility] on discharge. I have ordered an ambulation study for tomorrow to see if he qualifies for oxygen and we will continue to monitor him closely and follow as needed. #[id number] [facility]
[2018-12-01] MEDS: ACITRETIN 25 MG PO SCH (20:05)
[2018-12-01] MEDS: ASPIRIN (CHEWABLE) 81 MG TAB PO SCH (20:06)
[2018-12-01] MEDS: ATORVASTATIN 20 MG TAB PO SCH (20:06)
[2018-12-02] MEDS: methylPREDNISolone SODIUM SUC 125 MG/2 ML VIAL IV SCH ×4 (00:13→17:26)
[2018-12-02] MEDS: SODIUM CHLORIDE 0.9% (FLUSH) 10 ML SYG IV PRN ×2 (00:13→06:06)
[2018-12-02] MEDS: MAGNESIUM HYDROXIDE 30 ML UD PO SCH ×6 (00:15→20:42)
[2018-12-02] MEDS: PANTOPRAZOLE SODIUM IV 40 MG VIAL IV SCH (06:05)
[2018-12-02] MEDS: LEVOTHYROXINE SODIUM 0.1 MG TAB PO SCH (06:05)
[2018-12-02] MEDS: POTASSIUM CHLORIDE 20 MEQ TAB PO SCH (07:39)
[2018-12-02] MEDS: IPRATROPIUM/ALBUTEROL 3 ML VIAL NEB SCH ×4 (07:54→20:45)
[2018-12-02] MEDS ORDERED: SODIUM CHL 0.9% 100ML MINI-BAG 100 ML IVPB ONE ×2 (08:06→19:16)
[2018-12-02] MEDS: LISINOPRIL 10 MG TAB PO SCH (09:13)
[2018-12-02] MEDS: traMADol HCL 50 MG TAB PO SCH ×2 (09:13→20:43)
[2018-12-02] MEDS: CYCLOBENZAPRINE HCL 5 MG TAB PO SCH ×2 (09:14→20:45)
[2018-12-02] MEDS: amLODIPine BESYLATE 5 MG TAB PO SCH (09:14)
[2018-12-02] MEDS: SODIUM CHLORIDE 0.9% (FLUSH) 10 ML SYG IV SCH ×2 (09:14→20:44)
[2018-12-02] MEDS: cefTRIAXone SODIUM 2 GM in SODIUM CHL 0.9% 100ML MINI-BAG 100 ML IVPB SCH ×2 (09:14→20:44)
[2018-12-02] MEDS: CARVEDILOL 3.125 MG TAB PO SCH ×2 (09:14→20:43)
[2018-12-02] MEDS: SILVER SULFADIAZINE 1 % 25 GM TUBE TOP SCH ×2 (09:14→20:43)
[2018-12-02] MEDS: POLYETHYLENE GLYCOL 3350 17 GM PCKT PO SCH (09:15)
[2018-12-02] MEDS ORDERED: WARFARIN SODIUM 2 MG TAB PO ONE (12:00)
[2018-12-02] MEDS: WARFARIN SODIUM 3 MG TAB PO SCH (12:26)
--- NOTE | 2018-12-02 14:46 | PN ---
SUPERVISING PHYSICIAN: Tadeo Veras MD DATE: 12/02/18 SUBJECTIVE: The patient is sitting up on the side of the bed. His son is at the bedside. The patient feels much better. He has no shortness of breath unless he takes his oxygen off and with some exertion. At rest, he has none. He denies chest pain, nausea, vomiting. OBJECTIVE: VITAL SIGNS: Temperature 97.6. Heart rate 65. Blood pressure 157/62. Respiratory rate 20. O2 saturation 94% on 3 liters nasal cannula. RESPIRATORY: Diminished at the bases, but otherwise clear to auscultation. CARDIAC: Regular rate and rhythm. GASTROINTESTINAL: Abdomen is soft, nondistended, nontender. Bowel sounds are positive. SKIN: He continues to have the red, splotchy areas from the earlier possible drug interaction over his torso. It has improved greatly and there are no open areas or drainage. NEUROLOGIC: He is awake and alert, oriented to person and place. He does get confused easily. LABORATORY: His final blood cultures show sensitivity to vancomycin and ceftriaxone. He is presently on ceftriaxone. They are beta strep group B. His echocardiogram report showed no vegetation on his valves. All other labs and films have been reviewed via the EMR. ASSESSMENT: 1. Severe sepsis secondary to right lower lobe pneumonia most likely community acquired with an admitting lactic acid of 2.7, temperature 103, WBCs of 16,500 and respiratory rate of 22. 2. History of endocarditis time 2. Previously it was after a dental procedures with no antibiotics. His echocardiogram reveals no vegetation, but his blood cultures are positive for group B strep. 3. History of C-Difficile colitis presently with no GI symptoms. 4. History of chronic obstructive pulmonary disease without exacerbation. 5. Coronary artery disease. 6. History of aortic valve replacement. 7. History of atrial fibrillation. He is on Coumadin therapy. PLAN: We will continue present supportive care. At this point, he is on Rocephin 2 grams every 12 hours. Previously when he was on his antibiotic regimen, his son did his antibiotics at home with [facility] assisting. I will call Dr. Yeh, infectious diseases, today and give her the results of the lab as well as get her recommendations on the antibiotics as well as treatment length. I will repeat his lab and chest x-ray in the morning. I have given him an extra 2 mg of Coumadin and will recheck his INR tomorrow. Hopefully, he can be discharged tomorrow with close followup with Dr. Jules as well as Dr. Yeh. We will continue to monitor him closely and follow as needed. [facility][id number] [facility]
[2018-12-02] MEDS: ATORVASTATIN 20 MG TAB PO SCH (20:42)
[2018-12-02] MEDS: ASPIRIN (CHEWABLE) 81 MG TAB PO SCH (20:43)
[2018-12-02] MEDS: ACITRETIN 25 MG PO SCH (20:45)
[2018-12-03] MEDS: MAGNESIUM HYDROXIDE 30 ML UD PO SCH ×3 (00:29→09:35)
[2018-12-03] MEDS: methylPREDNISolone SODIUM SUC 125 MG/2 ML VIAL IV SCH ×6 (00:29→23:55)
[2018-12-03] MEDS: LEVOTHYROXINE SODIUM 0.1 MG TAB PO SCH (06:26)
[2018-12-03] MEDS: PANTOPRAZOLE SODIUM IV 40 MG VIAL IV SCH (06:26)
--- NOTE | 2018-12-03 06:51 | RAD ---
Findings: Frontal and lateral chest radiographs. Comparison December 01, 2018. Right-sided PICC tip overlying the SVC. Median sternotomy and aortic valvular replacement. Left chest wall pacemaker. Cardiomegaly. No pulmonary vascular congestion. No pneumothorax. No pleural effusion. The diaphragm is flattened. No focal consolidation. Atherosclerotic plaque in the thoracic aorta. No acute osseous abnormality. Soft tissues are unremarkable. IMPRESSION: Stable chest radiograph. No acute cardiopulmonary abnormality. Electronically signed by: Nathan Ram MD 12/03/2018 6:49 AM CDT
[2018-12-03] MEDS ORDERED: SODIUM CHL 0.9% 100ML MINI-BAG 100 ML IVPB ONE ×2 (07:25→19:12)
[2018-12-03] MEDS: POTASSIUM CHLORIDE 20 MEQ TAB PO SCH (07:42)
[2018-12-03] MEDS ORDERED: INSULIN LISPRO 100 UNITS/ML PEN SUBCU ONE ×4 (07:54→11:50)
[2018-12-03] MEDS: IPRATROPIUM/ALBUTEROL 3 ML VIAL NEB SCH ×4 (08:12→20:20)
[2018-12-03] MEDS ORDERED: GLUCAGON INJ 1 MG VIAL SUBCU PRN (08:39)
[2018-12-03] MEDS ORDERED: DEXTROSE 50% 25 GM/50 ML SYG IV PRN (08:39)
[2018-12-03] MEDS: CYCLOBENZAPRINE HCL 5 MG TAB PO SCH ×2 (09:33→20:43)
[2018-12-03] MEDS: CARVEDILOL 3.125 MG TAB PO SCH ×2 (09:33→20:43)
[2018-12-03] MEDS: amLODIPine BESYLATE 5 MG TAB PO SCH (09:33)
[2018-12-03] MEDS: SILVER SULFADIAZINE 1 % 25 GM TUBE TOP SCH ×2 (09:34→20:43)
[2018-12-03] MEDS: LISINOPRIL 10 MG TAB PO SCH (09:34)
[2018-12-03] MEDS: cefTRIAXone SODIUM 2 GM in SODIUM CHL 0.9% 100ML MINI-BAG 100 ML IVPB SCH ×2 (09:34→20:44)
[2018-12-03] MEDS: traMADol HCL 50 MG TAB PO SCH ×2 (09:34→20:43)
[2018-12-03] MEDS: POLYETHYLENE GLYCOL 3350 17 GM PCKT PO SCH (09:35)
[2018-12-03] MEDS: SODIUM CHLORIDE 0.9% (FLUSH) 10 ML SYG IV SCH ×2 (09:35→20:44)
[2018-12-03] MEDS ORDERED: SODIUM CHLORIDE 0.9% 1000ML 1,000 ML IVS ONE (09:36)
[2018-12-03] MEDS: FUROSEMIDE INJ 40 MG/4 ML VIAL IV SCH ×2 (10:33→14:42)
[2018-12-03] MEDS: INSULIN LISPRO 100 UNITS/ML PEN SUBCU SCH ×3 (11:52→20:47)
[2018-12-03] MEDS ORDERED: WARFARIN SODIUM 2 MG TAB PO ONE (12:00)
[2018-12-03] MEDS: WARFARIN SODIUM 3 MG TAB PO SCH (12:02)
[2018-12-03] MEDS: IV SET AND CAP CHANGE INJ INJ SCH (18:43)
--- NOTE | 2018-12-03 20:24 | PN ---
DATE: 12/03/18 SUPERVISING PHYSICIAN: Tadeo Veras M.D. SUBJECTIVE: The patient is sitting up in bed. Has no complaints. He still gets somewhat confused at times but denies any shortness of breath, chest pain, nausea or vomiting. OBJECTIVE: VITAL SIGNS: Temperature 98.4, heart rate 71, blood pressure 148/77, respiratory rate 16, O2 sat 94%. RESPIRATORY: Essentially clear to auscultation bilaterally. Slightly diminished at the bases. CARDIAC: Regular rate and rhythm. GASTROINTESTINAL: Abdomen is soft, nondistended, non-tender. Bowel sounds are positive. NEUROLOGIC: He is awake and alert. Oriented to person and place. LABORATORY: WBCs have normalized to 10,400 with hemoglobin 13.3, hematocrit 40.1. He has a slight shift on his differential. INR is 2.64. Blood sugars have run between 506 and 279. Hemoglobin A1c is 7.6. Electrolytes were basically within normal limits this morning with the exception of his magnesium was 7.2, calcium 7.8. Followup magnesium is pending. Chest x-ray shows stable chest radiograph. No acute cardiopulmonary abnormality. All other labs and films have been reviewed via the EMR. ASSESSMENT: 1. Severe sepsis secondary to right lower lobe pneumonia most likely community acquired with an admitting lactic acid of 2.7, temperature 103, WBCs of 16,500 and respiratory rate of 22. 2. History of endocarditis time 2. Previously it was after a dental procedures with no antibiotics. His echocardiogram reveals no vegetation, but his blood cultures are positive for group B strep. 3. History of C-Difficile colitis presently with no GI symptoms. 4. History of chronic obstructive pulmonary disease without exacerbation. 5. Coronary artery disease. 6. History of aortic valve replacement. 7. History of atrial fibrillation. He is on Coumadin therapy. 8. Diabetes mellitus type 2 with a hemoglobin A1c of 7.6. 9. Hypermagnesemia. He took several doses of Milk of Magnesia. He is asymptomatic with no hypersomnolence, bradycardia or other malignant signs and symptoms of hypermagnesemia. PLAN: We will continue present supportive care. I spoke with Dr. Yeh this morning and she felt that he needed 8 total weeks of IV antibiotic therapy. She was okay with Rocephin 2 grams b.i.d. He will have [facility] after discharge. His son will do his antibiotic therapy as he has done this previously in the past. I have started him on 1 mg of Amaryl for his diabetes and we have also put him on sliding scale insulin with a.c. and h.s. blood sugar checks. I have also given his son instructions as to what type of monitor to buy from the pharmacy and given him instructions for discharge. I have also given him some Lasix as well as some fluids for his elevated magnesium and I will check that in the morning. Hopefully he can be discharged home tomorrow with close followup with Dr. Jules as well as Dr. Yeh. Will continue to monitor closely and follow as needed. #[id number] MTDD
[2018-12-03] MEDS: ACITRETIN 25 MG PO SCH (20:42)
[2018-12-03] MEDS: ATORVASTATIN 20 MG TAB PO SCH (20:43)
[2018-12-03] MEDS: ASPIRIN (CHEWABLE) 81 MG TAB PO SCH (20:43)
[2018-12-04] MEDS: LEVOTHYROXINE SODIUM 0.1 MG TAB PO SCH (06:15)
[2018-12-04] MEDS: methylPREDNISolone SODIUM SUC 125 MG/2 ML VIAL IV SCH ×3 (06:15→17:39)
[2018-12-04] MEDS: PANTOPRAZOLE SODIUM IV 40 MG VIAL IV SCH (06:15)
[2018-12-04] MEDS: INSULIN LISPRO 100 UNITS/ML PEN SUBCU SCH ×4 (07:26→20:47)
[2018-12-04] MEDS: GLIMEPIRIDE 2 MG TAB PO SCH (07:27)
[2018-12-04] MEDS: POTASSIUM CHLORIDE 20 MEQ TAB PO SCH (07:30)
[2018-12-04] MEDS: SILVER SULFADIAZINE 1 % 25 GM TUBE TOP SCH ×2 (07:54→20:52)
[2018-12-04] MEDS ORDERED: SODIUM CHL 0.9% 100ML MINI-BAG 100 ML IVPB ONE ×2 (08:17→19:52)
[2018-12-04] MEDS: amLODIPine BESYLATE 5 MG TAB PO SCH (08:34)
[2018-12-04] MEDS: cefTRIAXone SODIUM 2 GM in SODIUM CHL 0.9% 100ML MINI-BAG 100 ML IVPB SCH ×2 (08:34→20:44)
[2018-12-04] MEDS: CARVEDILOL 3.125 MG TAB PO SCH ×2 (08:34→20:50)
[2018-12-04] MEDS: traMADol HCL 50 MG TAB PO SCH ×2 (08:35→20:51)
[2018-12-04] MEDS: CYCLOBENZAPRINE HCL 5 MG TAB PO SCH ×2 (08:35→20:50)
[2018-12-04] MEDS: SODIUM CHLORIDE 0.9% (FLUSH) 10 ML SYG IV SCH ×2 (08:36→20:52)
[2018-12-04] MEDS: LISINOPRIL 10 MG TAB PO SCH (08:36)
[2018-12-04] MEDS: POLYETHYLENE GLYCOL 3350 17 GM PCKT PO SCH (08:36)
[2018-12-04] MEDS: IPRATROPIUM/ALBUTEROL 3 ML VIAL NEB SCH ×4 (09:08→20:30)
[2018-12-04] MEDS ORDERED: FUROSEMIDE INJ 40 MG/4 ML VIAL IV ONE (10:04)
[2018-12-04] MEDS: CALCIUM CARBONATE-VITAMIN D 500 MG TAB PO SCH ×2 (12:00→20:50)
--- NOTE | 2018-12-04 16:59 | PN ---
DATE: 12/04/18 SUPERVISING PHYSICIAN: Tadeo Veras M.D. SUBJECTIVE: The patient is lying in bed. He complains that his arms are a little bit more swollen today than they have been. He did receive some fluids yesterday. We discussed with his sons his discharge plan and his sons gave me the information for his pharmacy that he had used in the past for them to do his antibiotics at home. I informed them that in speaking with [facility] today that they were unable to obtain the Rocephin IV to be given at home. Other than that the patient has no complaints of chest pain, shortness of breath, nausea or vomiting, diarrhea or constipation. OBJECTIVE: VITAL SIGNS: Temperature 98.2, heart rate 73, blood pressure 150/80, respiratory rate 16, O2 sat 93% on 2 liters nasal cannula. RESPIRATORY: Diminished breath sounds at the bases. CARDIAC: Regular rate and rhythm. GASTROINTESTINAL: Abdomen is soft, nondistended, non-tender. Bowel sounds are positive. SKIN: Continues to have redness that is splotchy over the entire body from the previous rash. EXTREMITIES: He has a trace of pedal edema and he also has +1 edema to his arms and hands. Bilateral radial and pedal pulses are palpable at +2. NEUROLOGIC: He is awake and alert. He is oriented to person and place. He does get confused at times when answering questions. LABORATORY: WBCs are 9.1 with hemoglobin 12.7, hematocrit 38.4. He has a left shift on his differential. INR is 4.6. Blood sugars have run between 273 and 308. Calcium 6.8 but corrected calcium is 7.5. Magnesium 5.9. All other labs and films have been reviewed via the EMR. ASSESSMENT: 1. Severe sepsis secondary to right lower lobe pneumonia most likely community acquired with an admitting lactic acid of 2.7, temperature 103, WBCs of 16,500 and respiratory rate of 22. 2. History of endocarditis time 2. Previously it was after a dental procedures with no antibiotics. His echocardiogram reveals no vegetation, but his blood cultures are positive for group B strep that is sensitive to Rocephin. 3. History of C-Difficile colitis presently with no GI symptoms. 4. History of chronic obstructive pulmonary disease without exacerbation. 5. Coronary artery disease. 6. History of aortic valve replacement. 7. History of atrial fibrillation. He is on Coumadin therapy. 8. Diabetes mellitus type 2 with a hemoglobin A1c of 7.6. 9. Hypermagnesemia. He is asymptomatic with no hypersomnolence, bradycardia or other malignant signs and symptoms of hypermagnesemia. His magnesium has improved today. PLAN: Although we had planned to send the patient home today because he is unable to get his IV antibiotics until Thursday, he will be kept and continued on his IV Rocephin until that time. I have faxed the prescription to that pharmaceutical company and we will need to followup at that time with them to make sure that he can get his antibiotics at home. There was also an ambulation study ordered and he will need oxygen at home, so that will need to be taken care of at some point prior to discharge. Since he has no hypermagnesemia symptoms, I have just put the patient on oral calcium and Vitamin D that has been sent to the pharmacy. On discharge, he will have [facility] that will assist them with the IV infusion of Rocephin. His Coumadin will be held tonight and I will recheck his INR in the morning. Hopefully that can be restarted tomorrow. His son has gotten a glucometer for at home and his Amaryl has also been sent to [facility]. He has a followup with Dr. Jules as well as he will need a followup with Dr. Yeh here in [place]. His Rocephin prescription is for 98 IV piggyback of Rocephin. He is to get 2 grams twice daily and his infusion should be done through 01/22/19 at the recommendation of Dr. Yeh for 8 total weeks of antibiotic therapy. Hopefully we can get everything done on Thursday and he can be discharged with close followup with his primary care physician and Dr. Yeh. I have ordered some routine labs to check his electrolytes and his INR in the morning. Will continue to monitor closely and follow as needed. #[id number] [facility]
[2018-12-04] MEDS: ACITRETIN 25 MG PO SCH (20:49)
[2018-12-04] MEDS: ATORVASTATIN 20 MG TAB PO SCH (20:50)
[2018-12-04] MEDS: ASPIRIN (CHEWABLE) 81 MG TAB PO SCH (20:50)
[2018-12-05] MEDS: methylPREDNISolone SODIUM SUC 125 MG/2 ML VIAL IV SCH ×2 (00:09→06:01)
[2018-12-05] MEDS: SODIUM CHLORIDE 0.9% (FLUSH) 10 ML SYG IV PRN ×2 (00:10→06:02)
[2018-12-05] MEDS: PANTOPRAZOLE SODIUM IV 40 MG VIAL IV SCH (06:01)
[2018-12-05] MEDS: LEVOTHYROXINE SODIUM 0.1 MG TAB PO SCH (06:07)
[2018-12-05] MEDS ORDERED: SODIUM CHL 0.9% 100ML MINI-BAG 100 ML IVPB ONE ×2 (07:02→19:24)
[2018-12-05] MEDS: INSULIN LISPRO 100 UNITS/ML PEN SUBCU SCH ×4 (07:09→20:50)
[2018-12-05] MEDS: GLIMEPIRIDE 2 MG TAB PO SCH (07:10)
[2018-12-05] MEDS: POTASSIUM CHLORIDE 20 MEQ TAB PO SCH (07:11)
--- NOTE | 2018-12-05 07:42 | RAD ---
EXAM: Single view chest. INDICATION: PICC line placement. COMPARISON: Chest x-ray: 12/04/2019. FINDINGS: Cardiac silhouette: Enlarged with a left chest wall pacemaker/AICD Amanda: Unremarkable. Lobar consolidation: None. Pleural effusion: None. Pneumothorax: None. Other: The right PICC has been retracted and now terminates near the right brachiocephalic vein Bones: Unremarkable. Other: None. IMPRESSION: Retraction of the right PICC which now terminates near the right brachiocephalic vein. Electronically signed by: Praveen Pérez MD 12/05/2018 7:39 AM CDT Workstation: [id number]
[2018-12-05] MEDS: IPRATROPIUM/ALBUTEROL 3 ML VIAL NEB SCH ×4 (08:15→20:32)
--- NOTE | 2018-12-05 08:51 | RAD ---
EXAM: XR Chest, 1 View CLINICAL HISTORY: 88 years old and is Male; Advanced PICC line, checking for proper position. TECHNIQUE: Frontal view of the chest. Image obtained 8:31 AM. COMPARISON: Exam 90 minutes earlier. FINDINGS: Limitations: None. Lungs: Unremarkable. No consolidation. Pleural space: Unremarkable. No pneumothorax. Heart: Stable cardiac enlargement. Mediastinum: Unremarkable. Bones/joints: Unremarkable. Tubes, lines and devices: Cardiac pacing wires present and unchanged. The right percutaneous catheter appears to have been advanced slightly. The distal approximately 3 cm of the catheter is looped upon itself at the subclavian jugular junction. The catheter may be extending into the right jugular vein. IMPRESSION: 1. Lines and tubes as above. 2. Otherwise, no change. Electronically signed by: Caterina Hurst MD 12/05/2018 8:49 AM CDT
[2018-12-05] MEDS: CARVEDILOL 3.125 MG TAB PO SCH ×2 (09:59→20:18)
[2018-12-05] MEDS: CALCIUM CARBONATE-VITAMIN D 500 MG TAB PO SCH ×2 (09:59→20:18)
[2018-12-05] MEDS: SILVER SULFADIAZINE 1 % 25 GM TUBE TOP SCH ×2 (09:59→20:20)
[2018-12-05] MEDS: CYCLOBENZAPRINE HCL 5 MG TAB PO SCH ×2 (09:59→20:17)
[2018-12-05] MEDS: amLODIPine BESYLATE 5 MG TAB PO SCH (09:59)
[2018-12-05] MEDS: SODIUM CHLORIDE 0.9% (FLUSH) 10 ML SYG IV SCH ×2 (09:59→20:19)
[2018-12-05] MEDS: LISINOPRIL 10 MG TAB PO SCH (09:59)
[2018-12-05] MEDS: POLYETHYLENE GLYCOL 3350 17 GM PCKT PO SCH (09:59)
[2018-12-05] MEDS: traMADol HCL 50 MG TAB PO SCH ×2 (10:10→20:18)
--- NOTE | 2018-12-05 10:38 | RAD ---
EXAM: XR Chest, 1 View CLINICAL HISTORY: 88 years old and is Male; End of PICC line position, proper placement. TECHNIQUE: Frontal view of the chest. Images obtained at 10:15 AM. COMPARISON: 8:31 AM the same day FINDINGS: Limitations: None. Lungs: Unremarkable. No consolidation. Pleural space: Unremarkable. No pneumothorax. Heart: Stable cardiac enlargement. Mediastinum: Unremarkable. Bones/joints: Unremarkable. Vasculature: Stable vascular crowding. Tubes, lines and devices: Right percutaneous catheter has been slightly retracted and terminates in the mid subclavian vein. Stable cardiac pacing device. IMPRESSION: 1. Lines and tubes as above. 2. Otherwise, no change. Electronically signed by: Caterina Hurst MD 12/05/2018 10:36 AM CDT
[2018-12-05] MEDS: cefTRIAXone SODIUM 2 GM in SODIUM CHL 0.9% 100ML MINI-BAG 100 ML IVPB SCH ×2 (11:15→11:38)
[2018-12-05] MEDS: KCL 20 MEQ/NS 1,000 ML IVS PRN (11:15)
[2018-12-05] MEDS ORDERED: WARFARIN SODIUM 3 MG TAB PO SCH (12:00)
--- NOTE | 2018-12-05 15:52 | PN ---
DATE: 12/05/18 SUPERVISING PHYSICIAN: Tadeo Veras M.D. SUBJECTIVE: The patient is sitting on the edge of the bed eating breakfast. I was notified by the charge nurse that the patient's PICC line had been inadvertently pulled back. We are currently awaiting a replacement which should occur today. He has had no nausea or vomiting, diarrhea or shortness of breath. His edema seems to be improved slightly. OBJECTIVE: VITAL SIGNS: Temperature 98.2, pulse 70, blood pressure 138/81, respirations 17, satting 96% on 2 liters nasal cannula. I's and O's show a negative balance of 995 with 1380 in, 2375 out. Weight is 96.5 kg. GENERAL: The patient is resting comfortably just having finished breakfast. CHEST: Lung sounds remain clear to auscultation. HEART: Regular rate and rhythm. ABDOMEN: Soft, nondistended but obese with positive bowel sounds. SKIN: Continues to show some redness over the entire body that is splotchy in appearance. EXTREMITIES: Show just a trace amount of edema bilaterally with 1+ to his arms and hands. NEUROLOGIC: He is alert and oriented times three. LABORATORY: White count 8,500, hemoglobin is stable at 13.4, hematocrit 40.3. RBC indices indicate a microcytosis with platelet count 226,000. Differential does show a left shift. INR again is elevated this morning at 4.83. Chemistries show a normal sodium and potassium. Coags were low at 100, BUN 70, creatinine 1.42 which has improved from yesterday at 1.54. Blood sugars are showing to be improving ranging between 228 and 265. Magnesium is down to 4.9, albumin 3.3. MICROBIOLOGY: No additional microbiology specimens. RADIOLOGY: He had multiple chest x-rays checking placement on PICC line. The final x-ray showed the PICC line slightly retracted and terminating the mid subclavian vein. ASSESSMENT: 1. Severe sepsis secondary to right lower lobe pneumonia showing improvement with parenteral antibiotics. 2. Bacteremia secondary to gram positive Group B Strep showing sensitive to Rocephin with the patient having a history of previous endocarditis secondary to dental procedures and on antibiotics with current echocardiogram revealing no vegetation. 3. History of C-Difficile colitis presently with no GI symptoms. 4. History of chronic obstructive pulmonary disease without exacerbation. 5. Coronary artery disease. 6. History of aortic valve replacement. 7. History of atrial fibrillation. He is on Coumadin therapy. 8. Diabetes mellitus type 2 with a hemoglobin A1c of 7.6. 9. Hypermagnesemia. He is asymptomatic with no hypersomnolence, bradycardia or other malignant signs and symptoms of hypermagnesemia. His magnesium has improved today. PLAN: The PICC line is going to be replaced this afternoon. Will hopefully be able to discharge tomorrow once we are able to get his antibiotics that can be initiated at home. Will await ambulation studies to see his need for oxygen prior to discharge. Will continue to monitor his magnesium levels. Once discharged he will be with [facility] for the Rocephin infusion. Will continue to hold his Coumadin. Will check an INR in the morning. His Amaryl has been sent to [facility] and he has a glucometer at home. Once discharged he will need followup with Dr. Jules and Dr. Yeh. He will have prescriptions for Rocephin 98 IV piggyback 2 grams daily to run through 01/22/19 for a total of 8 weeks of antibiotic therapy. Again, once his PICC line is in place and we have his medications arranged, and we finalize his need for oxygen at home, hopefully be able to discharge later tomorrow. #[id number] MTDD
--- NOTE | 2018-12-05 18:05 | RAD ---
EXAM DESCRIPTION: Chest,1 View CLINICAL HISTORY: 88 years Male New PICC Line, Checking for proper placement. COMPARISON: Prior study performed on the same day. TECHNIQUE: AP view of the chest was obtained. Study is overpenetrated. FINDINGS: Right peripheral catheter is present with the tips seen at the atrial caval junction. No pneumothorax. Cardiac silhouette is enlarged. Central vessels are not increased. Pacemaker leads identified. Electrodes left axilla. No new infiltrates or effusions seen. No consolidation. No pneumothorax. IMPRESSION: Satisfactory right peripheral catheter placement. No pneumothorax. Remaining findings unchanged when correlated with the prior study. Electronically signed by: Garima Daily MD 12/05/2018 6:03 PM CDT
[2018-12-05] MEDS: ACITRETIN 25 MG PO SCH (20:17)
[2018-12-05] MEDS: ATORVASTATIN 20 MG TAB PO SCH (20:18)
[2018-12-05] MEDS: ASPIRIN (CHEWABLE) 81 MG TAB PO SCH (20:18)
[2018-12-06] MEDS: cefTRIAXone SODIUM 2 GM in SODIUM CHL 0.9% 100ML MINI-BAG 100 ML IVPB SCH ×2 (00:03→13:40)
[2018-12-06] MEDS: KCL 20 MEQ/NS 1,000 ML IVS PRN (01:32)
[2018-12-06] MEDS: LEVOTHYROXINE SODIUM 0.1 MG TAB PO SCH (06:17)
[2018-12-06] MEDS: PANTOPRAZOLE SODIUM IV 40 MG VIAL IV SCH (06:17)
[2018-12-06] MEDS: INSULIN LISPRO 100 UNITS/ML PEN SUBCU SCH ×4 (07:17→21:03)
[2018-12-06] MEDS ORDERED: predniSONE 20 MG TAB PO ONE (08:00)
[2018-12-06] MEDS: IPRATROPIUM/ALBUTEROL 3 ML VIAL NEB SCH ×4 (08:02→20:47)
[2018-12-06] MEDS: CYCLOBENZAPRINE HCL 5 MG TAB PO SCH ×2 (08:07→21:06)
[2018-12-06] MEDS: GLIMEPIRIDE 2 MG TAB PO SCH (08:07)
[2018-12-06] MEDS: POTASSIUM CHLORIDE 20 MEQ TAB PO SCH (08:07)
[2018-12-06] MEDS: amLODIPine BESYLATE 5 MG TAB PO SCH (08:07)
[2018-12-06] MEDS: POLYETHYLENE GLYCOL 3350 17 GM PCKT PO SCH (08:07)
[2018-12-06] MEDS: traMADol HCL 50 MG TAB PO SCH ×2 (08:08→21:06)
[2018-12-06] MEDS: CALCIUM CARBONATE-VITAMIN D 500 MG TAB PO SCH ×2 (08:08→21:06)
[2018-12-06] MEDS: LISINOPRIL 10 MG TAB PO SCH (08:08)
[2018-12-06] MEDS: CARVEDILOL 3.125 MG TAB PO SCH ×2 (08:13→21:06)
[2018-12-06] MEDS: SODIUM CHLORIDE 0.9% (FLUSH) 10 ML SYG IV SCH ×2 (10:00→21:08)
[2018-12-06] MEDS ORDERED: SODIUM CHL 0.9% 100ML MINI-BAG 0 ML IVPB ONE (12:45)
[2018-12-06] MEDS ORDERED: SODIUM CHL 0.9% 100ML MINI-BAG 100 ML IVPB ONE ×2 (13:14→19:56)
[2018-12-06] MEDS: SILVER SULFADIAZINE 1 % 25 GM TUBE TOP SCH ×2 (13:21→21:08)
[2018-12-06] MEDS: IV SET AND CAP CHANGE INJ INJ SCH (17:48)
[2018-12-06] MEDS: ACITRETIN 25 MG PO SCH (21:04)
[2018-12-06] MEDS: ASPIRIN (CHEWABLE) 81 MG TAB PO SCH (21:05)
[2018-12-06] MEDS: ATORVASTATIN 20 MG TAB PO SCH (21:06)
[2018-12-06] MEDS: diphenhydrAMINE HCL 25 MG CAP PO PRN (21:06)
--- NOTE | 2018-12-06 21:28 | PN ---
DATE: 12/06/18 SUPERVISING PHYSICIAN: Pb Jules M.D. SUBJECTIVE: The patient feels pretty good this morning. Notes that he has been urinating quite a bit. Seems like his edema has gone down. He has had no shortness of breath or coughing. We are still awaiting final logistical arrangements for his antibiotics at discharge. OBJECTIVE: VITAL SIGNS: Temperature 89, pulse 66, blood pressure 136/77, respirations 18, O2 saturation 97% on room air. I's and O's show a positive balance of 500 with 1950 in, 1450 out. Weight 96.4 kg which is down from yesterday at 96.5. GENERAL: The patient is resting comfortably just having finished breakfast. CHEST: Lung sounds remain clear to auscultation. HEART: Regular rate and rhythm. ABDOMEN: Soft, nondistended but obese with positive bowel sounds. SKIN: Today, shows to be without any blotchy areas, but does continue to have some redness and some dry scales upper and lower extremities with no signs of secondary infection. EXTREMITIES: Without any edema to the lower extremities. Upper extremities showed trace edema both hands and arms. NEUROLOGIC: He is alert and oriented times three. LABORATORY: Chemistries show normal electrolytes with BUN 57, creatinine now has normalized to 1.15. Blood sugars ranging between 190 and 256. Calcium 7.3, magnesium still elevated at 4.3. INR is 83.62 down from 4.83 yesterday. MICROBIOLOGY: Blood cultures final results showed beta Streptococcus Group B sensitive to vancomycin and Ceftriaxone and Penicillin, and that was from the anaerobic and aerobic bottles. RADIOLOGY: No additional radiographic studies. ASSESSMENT: 1. Severe sepsis secondary to right lower lobe pneumonia showing improvement with parenteral antibiotics. 2. Bacteremia secondary to gram positive Group B Strep showing sensitive to Rocephin with the patient having a history of previous endocarditis secondary to dental procedures and on antibiotics with current echocardiogram revealing no vegetation. 3. History of C-Difficile colitis presently with no GI symptoms. 4. History of chronic obstructive pulmonary disease without exacerbation. 5. Coronary artery disease. 6. History of aortic valve replacement. 7. History of atrial fibrillation. He is on Coumadin therapy. 8. Diabetes mellitus type 2 with a hemoglobin A1c of 7.6. 9. Hypermagnesemia. He is asymptomatic with no hypersomnolence, bradycardia or other malignant signs and symptoms of hypermagnesemia. His magnesium has improved today. 10. Supratherapeutic INR secondary to current antibiotic regimen requiring further management of Coumadin levels. PLAN: We are still working to make final arrangements for his antibiotics at home. The paperwork has been sent. Once those are finalized we will discharge the patient, but at this point it appears that it probably will not happen until tomorrow morning. Until then, will continue to treat as needed. He will be encouraged good pulmonary hygiene. I did hold his Coumadin today. Will recheck an INR in the morning. Again, his Amaryl was sent to [facility] as well as glucometer and strips. On discharge he will need to followup with Dr. Jules and Dr. Yeh. He does have a prescription for Rocephin for 98 IV piggyback 2 grams daily to run through 01/22/19 for a total of 8 weeks of antibiotic therapy. Until we can discharge will continue to monitor and treat as needed. #[id number] MTDD
[2018-12-07] MEDS: cefTRIAXone SODIUM 2 GM in SODIUM CHL 0.9% 100ML MINI-BAG 100 ML IVPB SCH ×2 (00:08→09:34)
[2018-12-07 06:23] VITALS: BP 176/91; TEMP 98.1
[2018-12-07] MEDS: PANTOPRAZOLE SODIUM IV 40 MG VIAL IV SCH (06:31)
[2018-12-07] MEDS: LEVOTHYROXINE SODIUM 0.1 MG TAB PO SCH (06:32)
[2018-12-07] MEDS: IPRATROPIUM/ALBUTEROL 3 ML VIAL NEB SCH (08:00)
[2018-12-07 08:03] VITALS: O2SAT 95
[2018-12-07] MEDS ORDERED: SODIUM CHL 0.9% 100ML MINI-BAG 100 ML IVPB ONE (09:25)
[2018-12-07] MEDS: amLODIPine BESYLATE 5 MG TAB PO SCH (09:34)
[2018-12-07] MEDS: traMADol HCL 50 MG TAB PO SCH (09:35)
[2018-12-07] MEDS: POTASSIUM CHLORIDE 20 MEQ TAB PO SCH (09:35)
[2018-12-07] MEDS: LISINOPRIL 10 MG TAB PO SCH (09:35)
[2018-12-07] MEDS: GLIMEPIRIDE 2 MG TAB PO SCH (09:36)
[2018-12-07] MEDS: CARVEDILOL 3.125 MG TAB PO SCH (09:36)
[2018-12-07] MEDS: CYCLOBENZAPRINE HCL 5 MG TAB PO SCH (09:37)
[2018-12-07] MEDS: CALCIUM CARBONATE-VITAMIN D 500 MG TAB PO SCH (09:40)
[2018-12-07] MEDS: POLYETHYLENE GLYCOL 3350 17 GM PCKT PO SCH (09:40)
[2018-12-07] MEDS: SILVER SULFADIAZINE 1 % 25 GM TUBE TOP SCH (09:40)
[2018-12-07] MEDS: SODIUM CHLORIDE 0.9% (FLUSH) 10 ML SYG IV SCH (09:40)
[2018-12-07] MEDS: INSULIN LISPRO 100 UNITS/ML PEN SUBCU SCH (09:41)
--- NOTE | 2018-12-08 09:06 | DS ---
SUPERVISING PHYSICIAN: Pb Jules MD ADMISSION DIAGNOSIS: 1. Severe sepsis secondary to right lower lobe pneumonia most likely community acquired with an admitting lactic acid of 2.7, temperature 103, WBCs of 16,500 and respiratory rate of 22. 2. 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 He has recently had a dental procedure. He did not receive antibiotics, but his CRP and ESR are both within normal limits. 3. History of C-Difficile colitis presently with no GI symptoms. 4. History of chronic obstructive pulmonary disease without exacerbation. 5. Coronary artery disease. 6. History of aortic valve replacement. 7. History of atrial fibrillation. He is on Coumadin therapy. 8. Hypertension. 9. Sleep apnea requiring a CPAP machine. DISCHARGE DIAGNOSIS: 1. Severe sepsis secondary to right lower lobe pneumonia showing improvement with parenteral antibiotics. 2. Bacteremia secondary to gram positive Group B Strep showing sensitive to Rocephin with the patient having a history of previous endocarditis secondary to dental procedures and on antibiotics with current echocardiogram revealing no vegetation. 3. History of C-Difficile colitis presently with no GI symptoms. 4. History of chronic obstructive pulmonary disease without exacerbation. 5. Coronary artery disease. 6. History of aortic valve replacement. 7. History of atrial fibrillation. He is on Coumadin therapy. 8. Diabetes mellitus type 2 with a hemoglobin A1c of 7.6. 9. Hypermagnesemia. He is asymptomatic with no hypersomnolence, bradycardia or other malignant signs and symptoms of hypermagnesemia. His magnesium has improved today. 10. Supratherapeutic INR secondary to current antibiotic regimen requiring further management of Coumadin levels. REASON FOR HOSPITALIZATION: This is an 88 year-old male came to the Emergency Room after he had some increasing confusion as well as shortness of breath. He also had a temperature of 103. He also complained of coughing. The patient does have some mild dementia. It is difficult to obtain a good H&P through the patient, but his sons have been helpful with his symptoms and past medical history. 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 He also has a history of C-Difficile colitis in the past. When he presented to the Emergency Room his vital signs showed an O2 sat of 90% on room air. He was slightly tachypneic at 22, blood pressure 141/62, heart rate 77, temperature 103.1. Lab was completed and he had a WBC of 16,500 with hemoglobin 14, hematocrit 41.8. He did have a left shift on his differential. INR was 2.48. He is on Coumadin. His electrolytes are basically within normal limits but he did have a lactic acid of 2.7. BNP was slightly elevated at 282. C reactive protein was 0.8. EST was 10. An x-ray was done and he was felt to have early stages of right lower lobe pneumonia. He was given some Rocephin and azithromycin as well as some IV fluids. Blood cultures were also drawn prior to his receiving antibiotics. He also had a urinalysis that was unremarkable. The patient was admitted in stable condition. LABORATORY: Initial white count was 16,500. It did go up as high as 18,100, but he had been on very high dose steroids. Prior to discharge, it was normalized to baseline level of 8,500. Platelet count was within normal limits at 226,000. Hemoglobin and hematocrit were stable. Discharge hemoglobin was 13.4 and hematocrit 40.3 with a microcytosis. Differential did show a left shift. He had 3% bands. Sedrate 10. He had multiple coagulation studies. Initially, INR was 1.67. After he was started on Coumadin and antibiotics, it did go up to a maximum of 5.83 and prior to discharge was down to 3.62. He had multiple chemistries. Electrolytes on admission were within normal limits. BUN 15, creatinine 1.12. He did have an elevated lactic acid on admission at 2.7. Liver functions were all within normal limits. BNP initially was 282. TSH was low at 0.26. Electrolytes stayed fairly stable. Last labs on 12/06/18 showed normal electrolytes with BUN 57, creatinine normalized to 1.15. Magnesium did go up to maximum of 7.6 and at discharge was down to 4.3. Lowest calcium was 6.8 and at discharge was 7.1. Urinalysis was within normal limits. MICROBIOLOGY: Blood culture were positive in both aerobic and anaerobic bottles. Final results showed beta strep group B that was sensitive to vancomycin, ceftriaxone and penicillin. No other organisms were identified on blood culture. RADIOLOGY: He had an echocardiogram prior to admission in the Emergency Room showing ejection fraction approximately 50 to 55% with prosthetic aortic valve appearing to be functioning normally. No right ventricular thrombus was noted. There was no mention of any vegetation on any valves on initial reading on echocardiogram done on 11/27/18. He had multiple x-rays of the chest. Initial chest x-ray showed no evidence of acute cardiopulmonary disease. Followup x- rays after admission were essentially stable. Last x-ray of the chest done on 12/05/18 per radiologic interpretation showed a satisfactory right peripheral placement of catheter, no pneumothorax. Cardiac silhouette was enlarged. No infiltrates or effusions seen. No consolidations, no pneumothorax. HOSPITAL COURSE: Mr. Remy was admitted on 11/27/18 from the Emergency Room for sepsis secondary to right lower lobe pneumonia as well as history of endocarditis. He did recently have a dental procedure, but did not receive antibiotics at that time. His blood cultures did show a group B strep that was sensitive to vancomycin, ceftriaxone and penicillin. He was started initially on treatment with vancomycin and azithromycin. After his blood cultures came back and final culture results were sensitive to vancomycin and ceftriaxone, the patient was transitioned to ceftriaxone at the recommendation of Dr. Yeh because the patient appeared to have an allergic reaction vancomycin. Given the allergic reaction to vancomycin, he was started on steroids for several days. These were discontinued and he was tapered down and before he went home, he was no longer taking any steroids. He did show some mild edema to his upper extremities, but that had resolved prior discharge. He was back to his baseline activity levels. Arrangements were made for continuation of his Rocephin infusions at home through home health. It was felt on the morning of discharge the patient was stable enough to continue with outpatient management. He did have an elevated INR, but showed no signs of any acute blood loss, bleeding or unexplained bruising and that had normalized prior to discharge. Vital signs at discharge showed temperature 98.1, pulse 80, blood pressure 176/91, respirations 20, saturation 94% to 95% on room air. PHYSICAL EXAMINATION: GENERAL: The patient is resting comfortably just having finished breakfast. CHEST: Lung sounds remain clear to auscultation. HEART: Regular rate and rhythm. ABDOMEN: Soft, nondistended but obese with positive bowel sounds. SKIN: Rash nearly resolved, just some mild erythema. EXTREMITIES: Without any edema to the lower extremities. Upper extremities showed trace edema. NEUROLOGIC: He is alert and oriented times three. PLAN: Mr. Remy was discharged with instructions to followup with Dr. Jules and Dr. Yeh as directed. He was to check his blood sugars in the morning and record and take those to his followup appointment with Dr. Jules. He was given a prescription for Amaryl and instructed to take it at breakfast and hold if his blood sugar was less than 75. He has appointments to followup with Dr. Yeh and Dr. Jules. He was to continue with home infusions of 2 grams of Rocephin for a total treatment course of infusion daily for 8 weeks, last treatment to be on 01/22/19. He will need followup with Dr. Yeh prior to completion. I am not sure if he will need another echocardiogram at that point. Diet at discharge was diabetic diet. Activity per physical therapy and home health. MEDICATIONS ON DISCHARGE: 1. Ceftriaxone 2 grams q.12h., #98 vials, no refills. 2. Calcium supplement 1 capsule daily, #30, no refills. 3. Amaryl 1 mg daily at breakfast, #30, no refills. All other medications prior to hospitalization were continued. DISPOSITION: The patient was discharged to care of family members and home health. CONDITION AT DISCHARGE: Stable and improved. #[id number] MTDD
== END 2018-12-07 11:20 | disposition home health service (06) | DRG 871 ==
LOC: ER 14:10 → MS 16:13
PROVIDERS: ADMIT Nurse Practitioner Acute Care; ATTEND Nurse Practitioner Family
PROC: 02HV33Z Insertion of Infusion Device into Superior Vena Cava, Percutaneous Approach (ICD-10-PCS; 2018-12-01)
PROC: 02HV33Z Insertion of Infusion Device into Superior Vena Cava, Percutaneous Approach (ICD-10-PCS; principal; 2018-12-05)
DX: A40.1 Sepsis due to streptococcus, group B (principal); J18.1 Lobar pneumonia, unspecified organism; J44.0 Chronic obstructive pulmonary disease with (acute) lower respiratory infection; R65.20 Severe sepsis without septic shock; I25.10 Atherosclerotic heart disease of native coronary artery without angina pectoris; I48.91 Unspecified atrial fibrillation; E11.9 Type 2 diabetes mellitus without complications; E83.41 Hypermagnesemia; R79.1 Abnormal coagulation profile; F03.90 Unspecified dementia, unspecified severity, without behavioral disturbance, psychotic disturbance, mood disturbance, and anxiety; L40.9 Psoriasis, unspecified; M81.0 Age-related osteoporosis without current pathological fracture; E78.1 Pure hyperglyceridemia; I10 Essential (primary) hypertension; G89.29 Other chronic pain; G47.33 Obstructive sleep apnea (adult) (pediatric); M54.5 Low back pain; E66.9 Obesity, unspecified; Z79.01 Long term (current) use of anticoagulants; Z95.3 Presence of xenogenic heart valve; Z95.1 Presence of aortocoronary bypass graft; Z95.810 Presence of automatic (implantable) cardiac defibrillator; Z88.5 Allergy status to narcotic agent; Z79.82 Long term (current) use of aspirin; Z79.891 Long term (current) use of opiate analgesic; Z79.899 Other long term (current) drug therapy

== ENCOUNTER → 2019-01-06 | Outpatient (CLI) | payer MEDICARE | LOC: GMAJ 11:14 | PROVIDERS: ATTEND Family Medicine | DX: E53.8 Deficiency of other specified B group vitamins (principal); E03.9 Hypothyroidism, unspecified; I10 Essential (primary) hypertension; I48.91 Unspecified atrial fibrillation ==

== ENCOUNTER 2019-01-14 01:47 | Emergency (ER) | payer MEDICARE ==
[2019-01-14 06:14] VITALS: O2SAT 94
[2019-01-14 06:38] VITALS: BP 102/87; TEMP 97.3
== END 2019-01-14 06:37 | disposition home or self-care (01) ==
LOC: ER 01:47
DX: R07.9 Chest pain, unspecified (principal); I25.2 Old myocardial infarction; E78.00 Pure hypercholesterolemia, unspecified; I50.9 Heart failure, unspecified; I11.0 Hypertensive heart disease with heart failure; E07.9 Disorder of thyroid, unspecified; Z95.0 Presence of cardiac pacemaker; Z95.1 Presence of aortocoronary bypass graft; Z95.2 Presence of prosthetic heart valve; Z79.01 Long term (current) use of anticoagulants; Z79.899 Other long term (current) drug therapy; Z79.82 Long term (current) use of aspirin; Z88.5 Allergy status to narcotic agent; Z88.1 Allergy status to other antibiotic agents
CPT/HCPCS: 36415; 71045; 71275; 80053; 82550; 82553; 83735; 83880; 84484; 85025; 85379; 85610; 85730; 93005; J2270; J7030

== ENCOUNTER 2019-01-15 11:21 | Emergency (ER) | payer MEDICARE ==
[2019-01-15 19:24] VITALS: TEMP 97.4; O2SAT 97
[2019-01-15 20:36] VITALS: BP 135/70
== END 2019-01-15 20:54 | disposition short-term general hospital (02) ==
LOC: ER 11:21
DX: K80.71 Calculus of gallbladder and bile duct without cholecystitis with obstruction (principal); R07.9 Chest pain, unspecified; E78.1 Pure hyperglyceridemia; I50.9 Heart failure, unspecified; I11.0 Hypertensive heart disease with heart failure; E07.9 Disorder of thyroid, unspecified; Z86.19 Personal history of other infectious and parasitic diseases; Z95.0 Presence of cardiac pacemaker; Z95.1 Presence of aortocoronary bypass graft; Z95.2 Presence of prosthetic heart valve; Z79.899 Other long term (current) drug therapy; Z79.01 Long term (current) use of anticoagulants; Z79.82 Long term (current) use of aspirin; Z88.5 Allergy status to narcotic agent; Z88.1 Allergy status to other antibiotic agents
CPT/HCPCS: 36415; 71045; 74176; 80048; 80076; 81001; 82550; 82553; 83605; 84484; 85025; 85610; 85730; 93005; J0696; J7050

== ENCOUNTER → 2019-01-26 | Outpatient (CLI) | payer MEDICARE | LOC: BFHH 15:06 | PROVIDERS: ATTEND Internal Medicine Infectious Disease | DX: A40.9 Streptococcal sepsis, unspecified (principal) ==

== ENCOUNTER → 2019-07-04 | Outpatient (CLI) | payer MEDICARE | LOC: GMAJ 10:47 | PROVIDERS: ATTEND Family Medicine | DX: I38 Endocarditis, valve unspecified (principal); Z79.01 Long term (current) use of anticoagulants ==

== ENCOUNTER → 2019-11-09 | Outpatient (CLI) | payer MEDICARE | LOC: GMAJ 14:09 | PROVIDERS: ATTEND Family Medicine | DX: E03.9 Hypothyroidism, unspecified (principal); I10 Essential (primary) hypertension ==